=== PATIENT | male | born 1960 | race Caucasian/White ===

== ENCOUNTER 2020-02-05 12:48 | Inpatient (IN) | payer OTHER, SELFPAY ==
[~2020-02-05] VITALS: Ht 177.8 cm; Wt 98.0 kg
[2020-02-05 13:25] VITALS: BP_SYST 122
--- NOTE | 2020-02-05 13:30 | NUR ---
ER Dr. ENGLAND at bedside examining patient.
--- NOTE | 2020-02-05 13:30 | NUR ---
Placed in room 8. Placed on equipment monitor phototypesetting, blood pressure machine and pulse oximeter. To gown for exam. Side rails up. Report given to OTTO Barth.
--- NOTE | 2020-02-05 13:35 | NUR ---
Patient presented to ER C/O SOB. Patient ambulatory to ER, skin pink & warm, respirations labored equal bilat, denies N/V/D. Patient states he has Covid.
[2020-02-05] MEDS ORDERED: DEXAMETHASONE SOD PHOSPHATE 10 MG/ML VIAL IVP ONE (14:00)
[2020-02-05] MEDS ORDERED: DEXAMETHASONE SOD PHOSPHATE 10 MG/ML VIAL ONE (14:13)
[2020-02-05 14:17] LABS: BASOPHILS % (AUTO) 0.3 % (0.0-2.0); EOSINOPHILS % (AUTO) 0.1 % (0.0-4.0); HEMOGLOBIN 14.8 g/dL (14.0-18.0); LYMPHOCYTES # (AUTO) 0.5 K/uL (1.0-5.5); LYMPHOCYTES % (AUTO) 4.6 % (20.5-51.5); MEAN CORPUSCULAR HEMOGLOBIN 31 pg (27-31); MEAN CORPUSCULAR HGB CONC 34 % (32-36); MEAN CORPUSCULAR VOLUME 91 fL (79.0-98.0); MONOCYTES # (AUTO) 0.2 K/uL (0.0-1.0); MONOCYTES % (AUTO) 1.7 % (1.7-9.3); NEUTROPHILS # (AUTO) 9.5 K/uL (1.8-7.7); NEUTROPHILS % (AUTO) 93.3 % (40.0-70.0); PLATELET COUNT (AUTO) 167 K/uL (130-430); RED BLOOD CELL COUNT(AUTO) 4.73 MIL/uL (4.2-6.2); RED CELL DISTRIBUTION WIDTH 12.9 % (9.0-15.0); WHITE BLOOD COUNT (AUTO) 10.2 K/uL (4.8-10.8)
[2020-02-05 14:34] LABS: PROTHROMBIN TIME 10.5 SECS (9.5-12.5)
[2020-02-05 14:35] LABS: CALCIUM 8.5 mg/dL (8.4-11.0); CREATININE 1.04 mg/dL (0.55-1.30); POTASSIUM 3.8 mmol/L (3.5-5.1)
[2020-02-05 14:40] LABS: TOTAL BILIRUBIN 0.6 mg/dL (0.0-1.0)
[2020-02-05 14:53] LABS: C-REACTIVE PROTEIN QUANT 58.9 mg/dL (0-0.5)
[2020-02-05] MEDS ORDERED: cefTRIAXone 1 GM IVPB PREMIX 50 ML IV ONE (15:15)
--- NOTE | 2020-02-05 15:24 | NUR ---
Patient will be admitted to care of Dr. Pena. Admitted to telemetry unit. Waiting for room assignment. SBAR report to be given at bedside with opportunity for questions.
[2020-02-05] MEDS ORDERED: IPRATROPIUM BROM 0.5 MG/2.5 ML VIAL.NEB (ATROVENT) INH PRN (15:30)
[2020-02-05 15:47] LABS: CLARITY/URINE SLIGHTLY HAZY (CLEAR); COLOR,URINE YELLOW (YELLOW); PROTEIN URINE 2+ (NEGATIVE)
[2020-02-05 15:48] LABS: BILIRUBIN,URINE NEGATIVE (NEGATIVE); BLOOD, URINE TRACE (NEGATIVE); GLUCOSE,URINE 3+ (NEGATIVE); KETONES,URINE 3+ (NEGATIVE); LEUKOCYTE ESTERASE ,URINE NEGATIVE (NEGATIVE); NITRITE, URINE NEGATIVE (NEGATIVE); UROBILINOGEN,URINE 0.2 (0.2-1.0)
[2020-02-05 15:49] LABS: BACTERIA,URINE FEW /HPF (None Seen); MUCUS,URINE 1+ /LPF (None Seen); RBC,URINE 0-3 /HPF (0-3)
--- NOTE | 2020-02-05 16:21 | NUR ---
Patient will be admitted to care of DR KIM. Admitted to TELE unit. Will go to room 120B. Belongings list completed. Complete and up to date summary report printed. SBAR report to be given at bedside with opportunity for questions.
[2020-02-05 16:30] VITALS: BP_SYST 128
[2020-02-05] MEDS ORDERED: ALBUTEROL MDI INHALATION 8 GM INH INH PRN (16:30)
--- NOTE | 2020-02-05 16:31 | NUR ---
ADMISSION NOTES, RECEIVED PT FROM ER. FOR COVID 19, UNDER THE CARE OF DR KIM AND DR VIEIRA. PT SITUATED IN THE BED, PT'S VITALS TAKEN. EDUCATED PT ON THE USE OF CALL LIGHT , TV AND BED CONTROLS. ENCOURAGED PT TO CALL NURSES FOR ASSISTANCE AND ANY CONCERNS FOR SAFETY. BED ALARM ON.
[2020-02-05 16:35] VITALS: BP_SYST 138
--- NOTE | 2020-02-05 16:40 | NUR ---
OPENING NOTES, RECEIVED PT IN BED, PT IS AAOX4, C/O OF CHEST PAIN WITH COUGHING, TOLERABLE PAIN AT THIS TIME. PT SOB WHEN TALKING. PT ON OXYMIZER 4 LIT. O2 SAT WAS 86%. O2 WAS INCREASED TO 8LI, O2 SAT INCREASED TO 90-92%. WILL CONT TO MONITOR.
[2020-02-05] MEDS: AZITHROMYCIN 500 MG in NS 250 ML IV SCH (17:46)
[2020-02-05] MEDS ORDERED: METF500S7 PO (18:26)
[2020-02-05] MEDS ORDERED: GLIP10TA21 PO (18:26)
[2020-02-05] MEDS ORDERED: LOSA50TA3 PO (18:26)
[2020-02-05] MEDS: IPRATROPIUM BROM 0.5 MG/2.5 ML VIAL.NEB (ATROVENT) INH SCH (19:00)
--- NOTE | 2020-02-05 19:33 | NUR ---
Closiing notes, pt in stable condition, continued to be on oxymizer 8 li. schedule abx given . o2 sat is 94% endorsed to night nurse.
--- NOTE | 2020-02-05 19:45 | NUR ---
OPENING NOTES Received report from OTTO Ruiz. Patient resting in bed, AAOx4 breathing evenly on 8L of oxygen via NC. Patient has and IV on the right hand 20g, Remdesivir running, patient tolerating it well. Educated patient on plan of care, fall/safety/isolation precautions, call light system, patient stated understanding with return demonstration. Bed is locked, armed, and at lowest position, will continue to monitor.
[2020-02-05] MEDS: ALBUTEROL MDI INHALATION 8 GM INH INH SCH (20:00)
[2020-02-05 20:20] VITALS: BP_SYST 115
[2020-02-05] MEDS: ENOXAPARIN SODIUM 100 MG/ML SYRINGE SQ SCH (20:20)
--- NOTE | 2020-02-05 20:20 | NUR ---
MEDICATION/ROUNDS Patient resting in bed, RT at bedside, patient now on high flow O2, 45L at 80%. Patient's O2 sat was low 80's, now currently at 95. Patient was complaining because of the air vent noise, patient moved from 120B to 120A, earplugs provided. Educated patient on due medication, patient stated understanding. Administered medication, patient tolerated it well. Patient denies any pain at this time. No other needs at this time. Fall/safety/isolation precautions, will continue to monitor. Addendum: 02/06/20 at 0506 by Manav Ramirez RN Patient was complaining of having a hard time eating due to sore throat and requested for a soft diet. Patient also said he checks his blood sugar at home.
--- NOTE | 2020-02-05 21:09 | NUR ---
PAGED DR. KIM FOR ORDERS DIALED: [phone] SPOKE TO: JAVA SQL DEVELOPER HUNG UP BEFORE GIVING NAME
--- NOTE | 2020-02-05 21:50 | NUR ---
RESOURCE/ADMITTING NURSE SPOKE WITH DR. REAL MD ORDERED FOR ACCUCHECKS ACHS, REGULAR INSULIN SLIDING SCALE, DIET CHANGED TO CCHO SOFT PER PATIENT REQUEST.
--- NOTE | 2020-02-05 22:15 | NUR ---
ROUNDS Patient resting in bed, breathing evenly and nonlabored on high flow O2, 45L at 80%. Patient asked for some jello and milk which was provided. No other needs at this time. Fall/safety/isolation precautions, will continue to monitor.
[2020-02-06] VITALS (18 sets, daily range): BP systolic 86–135
--- NOTE | 2020-02-06 00:20 | NUR ---
ROUNDS Patient resting in bed, awake, breathing evenly and nonlabored on high flow O2, 45L at 80%. Vital signs within normal limits. Fall/safety/isolation precautions, will continue to monitor.
[2020-02-06] MEDS: IPRATROPIUM BROM 0.5 MG/2.5 ML VIAL.NEB (ATROVENT) INH SCH ×4 (01:00→19:00)
[2020-02-06] MEDS: ALBUTEROL MDI INHALATION 8 GM INH INH SCH ×4 (01:30→20:08)
--- NOTE | 2020-02-06 02:18 | NUR ---
ROUNDS Patient resting in bed, eyes closed, breathing evenly and nonlabored on high flow O2, 45L at 80%. No s/s of distress at this time, no other needs at this time. Fall/safety/isolation precautions, will continue to monitor.
--- NOTE | 2020-02-06 04:04 | NUR ---
ROUNDS Patient resting in bed, awake, breathing evenly and nonlabored on high flow O2, 45L at 80%. Vital signs within normal limits. No s/s of distress at this time, no other needs at this time. Fall/safety/isolation precautions, will continue to monitor.
--- NOTE | 2020-02-06 06:27 | NUR ---
NOTIFIED CLUB DIRECTOR REGARDING ORDER TO TRANSFER TO ICU Notified resource nurse and ferry terminal supervisor regarding order to transfer to ICU. Patient resting in bed, AAOx4, breathing evenly on high flow, 45L O2, 80%, O2 sat 90%. BS checked: 316, coverage needed. Educated patient about insulin, patient stated understanding, 8 units of regular insulin given, patient tolerated it well. Patient states he "feels better this morning" and he is using the incentive spirometer that RT gave him, saying that "it helps me." Notified patient about ICU transfer. No other needs at this time, fall/safety/isolation precautions, will continue to monitor.
--- NOTE | 2020-02-06 06:29 | NUR ---
PAGED PAGED PARIS MCINTOSH AT [phone] SPOKE WITH JORDANA.
[2020-02-06] MEDS: INSULIN REGULAR, HUMAN 100 UNITS/ML, 10 ML VIAL (humuLIN R) SUBCUT PRN ×4 (06:35→21:12)
--- NOTE | 2020-02-06 07:20 | NUR ---
CLOSING NOTE ENDORSED SBAR REPORT TO COMING RN FOR CONTINUITY OF CARE. Addendum: 02/07/20 at 2243 by Meghan Johnson RN WRONG TIME
--- NOTE | 2020-02-06 07:27 | NUR ---
ROUNDS Spoke with patient's family earlier, wants to add daughters to persons to notify: Marta , Evelyn . Updated family with situation, family stated understanding, family requesting updates especially regarding changes in condition. Patient called and asked to be placed on a bedpan. Patient denies SOB or difficulty breathing at this time. Fall/safety/isolation precautions, will continue to monitor.
[2020-02-06] MEDS: DEXAMETHASONE SOD PHOSPHATE 10 MG/ML VIAL IVP SCH (08:14)
[2020-02-06] MEDS: ENOXAPARIN SODIUM 100 MG/ML SYRINGE SQ SCH ×2 (08:15→20:41)
--- NOTE | 2020-02-06 08:55 | NUR ---
TRANSFER TO ICU ROOM 127 Transferred patient to room 127, RT at bedside. Patient resting in bed, breathing evenly and nonlabored on high flow O2, 45L, 80%. Gave patient scheduled morning medications at 0815, patient tolerated them well. Vital signs within normal limits. Patient denies any SOB or difficulty breathing at this time. Needs met throughout the shift. No s/s of distress at this time, no other needs at this time. Fall/safety/isolation precautions. ICU nurse Hattie currently at bedside, will endorse care via SBAR.
--- NOTE | 2020-02-06 08:57 | NUR ---
Nutrition Update Adrian scale 17 noted. Pt admitted for COVID-19, PNA, Respiratory Failure Diet: CCHO, Soft Diet BMI: 30.8 kg/m2 RD to follow per nutrition care standards.
--- NOTE | 2020-02-06 09:10 | NUR ---
Transfer to ICU Received report from endorsing RN. Pt AAOx4, able to verbalize needs. Pt transfer to ICU for desaturating and high fiO2. Pt states no pain or distress at this time and that SOB occurs on exerting energy. Pt able to void and turn self. IV site intact, patent, no infiltration noted. Oriented pt to room and call light. Educated pt on treatment plan, proning, and breathing exercises. No other complaints at this time.
[2020-02-06] MEDS ORDERED: INSULIN GLARGINE 100 UNITS/ML 10 ML VIAL SUBCUT ONE (10:00)
--- NOTE | 2020-02-06 10:00 | NUR ---
Pt states he wants to prone. Assisted in proning, saturating greater than 90%. Tolerating well.
--- NOTE | 2020-02-06 10:26 | NUR ---
CONSULTATION PAGED/CALLED Reason for Consultation: [] PULMONARY DISTRESS; COVID 19 Person Who was Notified: [] MD BAI Consulting Physician: [] DR VIEIRA Liaison Officer Specialty: [] PULMO Ordering Physician: [] DR KIM
[2020-02-06] MEDS: cefTRIAXone 1 GM in D5W 50 ML IV SCH (15:49)
--- NOTE | 2020-02-06 16:27 | NUR ---
Pt using incentive spirometer. Also assisted pt with proning. Saturating at 90% and higher. Tolerating well.
[2020-02-06] MEDS: REMDESIVIR 100 MG in NS 250 ML IV SCH (17:32)
[2020-02-06] MEDS: AZITHROMYCIN 500 MG in NS 250 ML IV SCH (18:36)
--- NOTE | 2020-02-06 19:15 | NUR ---
Closing Pt up in bed eating dinner. Self prones and turns, tolerating well saturating 95%. No other complaints at this time. Endorsed plan of care to RN.
--- NOTE | 2020-02-06 19:20 | NUR ---
OPENING NOTE RECEIVED SBAR REPORT FROM OFF COMING RN FOR CONTINUITY OF CARE.
--- NOTE | 2020-02-06 20:15 | NUR ---
PT LAYING IN BED, A/O X 4. PT FOLLOWS COMMANDS. PT DENIES ANY PAIN OR DISCOMFORT. PT ON 45 L HIGH FLOW NC WITH 80% FIO2. PT USING INCENTIVE SPIROMETER, EDUCATED PT ON THE IMPORTANCE OF USING IT. ASSISTED PT TO PRONE POSITION, PT TOLERATED WELL. EDUCATED PT ON IMPORTANCE OF PRONING. CALL LIGHT WITHIN REACH. BED LOCKED AND IN THE LOWEST POSITION, SAFETY PRECAUTIONS IN PLACE. WILL CONTINUE TO MONITOR AND ASSESS.
[2020-02-07] VITALS (22 sets, daily range): BP systolic 104–142
[2020-02-07 06:48] LABS: ALBUMIN 2.5 g/dL (3.4-4.8); CALCIUM 8.6 mg/dL (8.4-11.0); CREATININE 0.92 mg/dL (0.55-1.30); TOTAL BILIRUBIN 0.5 mg/dL (0.0-1.0)
[2020-02-07] MEDS: INSULIN REGULAR, HUMAN 100 UNITS/ML, 10 ML VIAL (humuLIN R) SUBCUT PRN ×4 (06:56→22:16)
--- NOTE | 2020-02-07 07:20 | NUR ---
CLOSING NOTE ENDORSED SBAR REPORT TO COMING RN FOR CONTINUITY OF CARE.
--- NOTE | 2020-02-07 07:23 | NUR ---
OPENING NOTE Patient report received via SBAR from endorsing RN
[2020-02-07] MEDS: DEXAMETHASONE SOD PHOSPHATE 10 MG/ML VIAL IVP SCH (08:01)
[2020-02-07] MEDS: ENOXAPARIN SODIUM 100 MG/ML SYRINGE SQ SCH ×2 (08:01→21:30)
[2020-02-07] MEDS: glipiZIDE XL 5 MG TAB ( GLUCOTROL XL) PO SCH (08:01)
--- NOTE | 2020-02-07 10:30 | NUR ---
Nursing Note Patient had BM, patient cleaned, CHG bath given, patient tolerated well
--- NOTE | 2020-02-07 11:25 | NUR ---
Nursing Note Patient assisted to prone position, patient oxygen saturation at 94%, currently tolerating well
--- NOTE | 2020-02-07 12:30 | NUR ---
MD ROUND Dr. Leyva in to see patient, physician entered orders
--- NOTE | 2020-02-07 12:47 | NUR ---
CONSULT ID CONSULTING MD: DR. FAYE SPOKE TO: ERIKA DIALED: [phone] ORDERED BY: DR. HOGAN
[2020-02-07] MEDS: ALBUTEROL MDI INHALATION 8 GM INH INH SCH (14:00)
--- NOTE | 2020-02-07 14:00 | NUR ---
Nursing Note Patient assisted to left side
--- NOTE | 2020-02-07 15:00 | NUR ---
ROUND Dr. Gerber in to see patient, new orders entered
[2020-02-07] MEDS: cefTRIAXone 1 GM in D5W 50 ML IV SCH (15:10)
[2020-02-07] MEDS: REMDESIVIR 100 MG in NS 250 ML IV SCH (16:59)
[2020-02-07] MEDS: AZITHROMYCIN 500 MG in NS 250 ML IV SCH (18:09)
--- NOTE | 2020-02-07 19:23 | NUR ---
Closing Note Patient report given to nightshift RN via SBAR
--- NOTE | 2020-02-07 19:25 | NUR ---
OPENING NOTE Received SBAR report from off coming RN for continuity of care. Pt laying in bed to his right side. Pt on 45L with 80% FiO2, oxygen saturations high 80s-low 90s. Bed locked and in lowest position, safety precautions in place. Will continue to monitor and assess.
--- NOTE | 2020-02-07 20:55 | NUR ---
MD BEC[facility] [employer] DR. NOBLE LEAF SORTER [phone] SPOKE WITH THU
--- NOTE | 2020-02-07 21:30 | NUR ---
Pt A/O x 4, following commands. Pt denies any pain but c/o anxiety, provided emotional support. Pt remains on 45L O2 via high flow NC with 85% FiO2, oxygen saturations in high 80s-90s. Assisted pt prone position, pt tolerated well. Upon proning, pt's oxygen saturations maintained in 90s. Call light within reach. Bed locked and in lowest position, safety precautions in place. Will continue to monitor and assess.
--- NOTE | 2020-02-07 22:08 | NUR ---
DR. ZAMORA Spoke with Dr. Zamora in regards to pt c/o anxiety. Obtained telephone orders for PRN medication. Will carry out orders.
--- NOTE | 2020-02-07 22:10 | NUR ---
HIGH ALERT NOTE: Called back at [phone] identified within the medical roster to verify physician authenticity.
[2020-02-08] VITALS (24 sets, daily range): BP systolic 98–141
[2020-02-08] MEDS: LORazepam 2 MG/ML VIAL IVP PRN ×3 (02:07→23:21)
[2020-02-08] MEDS ORDERED: LORazepam 2 MG/ML VIAL ONE ×2 (02:09→10:18)
[2020-02-08] MEDS: IPRATROPIUM BROM 0.5 MG/2.5 ML VIAL.NEB (ATROVENT) INH SCH ×2 (07:00→13:00)
[2020-02-08] MEDS: INSULIN REGULAR, HUMAN 100 UNITS/ML, 10 ML VIAL (humuLIN R) SUBCUT PRN ×4 (07:09→20:41)
--- NOTE | 2020-02-08 07:31 | NUR ---
CLOSING NOTE Endorsed SBAR report to oncoming RN for continuity of care.
--- NOTE | 2020-02-08 07:35 | NUR ---
Opening Note Received bedside report from endorsing RN for continuation of care. Received patient awake and resting in bed, denies any pain or SOB at this time. No signs or symptoms of acute distress noted. Bed locked in lowest position, bed alarm on, and call light within reach. Fall and safety precautions in place.
[2020-02-08] MEDS: ALBUTEROL MDI INHALATION 8 GM INH INH SCH ×3 (07:47→21:57)
[2020-02-08 07:48] LABS: BASOPHILS % (AUTO) 0.3 % (0.0-2.0); HEMATOCRIT 39.3 % (36-54); HEMOGLOBIN 13.4 g/dL (14.0-18.0); LYMPHOCYTES # (AUTO) 0.7 K/uL (1.0-5.5); LYMPHOCYTES % (AUTO) 6.6 % (20.5-51.5); MEAN CORPUSCULAR HEMOGLOBIN 31 pg (27-31); MEAN CORPUSCULAR HGB CONC 34 % (32-36); MEAN CORPUSCULAR VOLUME 92 fL (79.0-98.0); MONOCYTES # (AUTO) 0.4 K/uL (0.0-1.0); MONOCYTES % (AUTO) 3.5 % (1.7-9.3); NEUTROPHILS % (AUTO) 89.6 % (40.0-70.0); PLATELET COUNT (AUTO) 292 K/uL (130-430); RED BLOOD CELL COUNT(AUTO) 4.28 MIL/uL (4.2-6.2); RED CELL DISTRIBUTION WIDTH 12.6 % (9.0-15.0); WHITE BLOOD COUNT (AUTO) 11.2 K/uL (4.8-10.8)
[2020-02-08 08:20] LABS: CALCIUM 8.5 mg/dL (8.4-11.0); CREATININE 0.9 mg/dL (0.55-1.30); POTASSIUM 4.2 mmol/L (3.5-5.1)
[2020-02-08] MEDS: glipiZIDE XL 5 MG TAB ( GLUCOTROL XL) PO SCH (08:39)
[2020-02-08] MEDS: DEXAMETHASONE SOD PHOSPHATE 10 MG/ML VIAL IVP SCH (08:39)
[2020-02-08] MEDS: ENOXAPARIN SODIUM 100 MG/ML SYRINGE SQ SCH ×2 (08:43→20:03)
--- NOTE | 2020-02-08 10:04 | NUR ---
Family Update Spoke with patient's Yakelin on the phone regarding patient status and plan of care. All questions answered and education provided.
--- NOTE | 2020-02-08 11:15 | NUR ---
Dr. Leyva in to see patient. No new orders.
--- NOTE | 2020-02-08 12:05 | NUR ---
Dietitian Recommendations * Recommend CCHO, mechanical soft, finely chopped diet w/ Glucerna BID, Cash BID (supplements provide an additional 620 kcal/day, 25 gm protein/day) MERCY, GET Please refer to Nutrition Assessment for details. Addendum: 02/08/20 at [address] Amended: Links added.
[2020-02-08] MEDS ORDERED: ASCORBIC ACID 500 MG TABLET PO ONE (14:30)
[2020-02-08] MEDS ORDERED: CHOLECALCIFEROL (VITAMIN D3) 2,000 UNIT TABLET PO ONE (14:30)
--- NOTE | 2020-02-08 14:53 | NUR ---
Dr. Parra at bedside examining patient. New orders received.
[2020-02-08] MEDS: cefTRIAXone 1 GM in D5W 50 ML IV SCH (15:07)
--- NOTE | 2020-02-08 15:09 | NUR ---
Family Update Spoke with patient's Yakelin on the phone regarding patient status and plan of care. All questions answered and education provided.
--- NOTE | 2020-02-08 16:16 | NUR ---
Dr. Gerber in to see patient. No new orders.
[2020-02-08] MEDS: AZITHROMYCIN 500 MG in NS 250 ML IV SCH (17:10)
[2020-02-08] MEDS: REMDESIVIR 100 MG in NS 250 ML IV SCH (18:01)
--- NOTE | 2020-02-08 19:17 | NUR ---
Closing Note Endorsed bedside report to oncoming RN using SBAR approach for continuation of care.
--- NOTE | 2020-02-08 19:20 | NUR ---
Opening Note Received report from AM nurse using SBAR approach.
[2020-02-08] MEDS: ASCORBIC ACID 500 MG TABLET PO SCH (20:03)
--- NOTE | 2020-02-08 21:50 | NUR ---
BT INITIATION: Consent signed per patient agreeing to administration of convalescent plasma. Blood has been type and crossmatched. Blood sent from blood bank. Information on unit of blood checked against patient wristband at bedside by two nurses. All information matches. Patient or responsible democrat informed of potential complications associated with blood transfusion. Informed of possible transfusion reaction symptoms. Aware of need to notify nurse at once of itching, shortness of breath, flushing, feeling of impending doom, or other symptoms not previously present. Vital signs taken within 5 minutes prior to initiation of transfusion. RN will remain with patient for first 15 minutes of transfusion at which time vital signs will be re-assessed.
[2020-02-09] VITALS (22 sets, daily range): BP systolic 97–154
[2020-02-09] MEDS: ALBUTEROL MDI INHALATION 8 GM INH INH SCH ×6 (02:05→19:45)
[2020-02-09] MEDS: INSULIN REGULAR, HUMAN 100 UNITS/ML, 10 ML VIAL (humuLIN R) SUBCUT PRN ×4 (06:34→20:57)
[2020-02-09] MEDS: IPRATROPIUM BROM 0.5 MG/2.5 ML VIAL.NEB (ATROVENT) INH SCH ×2 (07:00→13:00)
--- NOTE | 2020-02-09 07:15 | NUR ---
Closing Note Endorsed report to AM nurse using SBAR approach.
[2020-02-09 07:19] LABS: ALBUMIN 2.4 g/dL (3.4-4.8); BILIRUBIN,DIRECT 0.1 mg/dL (0.0-0.3); C-REACTIVE PROTEIN QUANT 5.1 mg/dL (0-0.5); TOTAL BILIRUBIN 0.5 mg/dL (0.0-1.0)
--- NOTE | 2020-02-09 08:00 | NUR ---
AM ASSESSMENT. PT LYING TO HIS SIDE, AWAKE, ON HIGH FLOW O2, SATURATION 82% TO 90%, PT ABLE TO EXPRESS BASIC NEEDS, COLD WATER TO DRINK AND BLANKET PROVIDED, WILL CONTINUE TO MONITOR.
--- NOTE | 2020-02-09 08:45 | NUR ---
FAMILY. PT'S CALLED, UPDATED HER ON PT'S STATUS. DR VIEIRA IN THE UNIT AND SPOKE TO HER VIA PHONE.
[2020-02-09] MEDS: ENOXAPARIN SODIUM 100 MG/ML SYRINGE SUBCUT SCH ×2 (09:00→20:09)
[2020-02-09] MEDS: DEXAMETHASONE SOD PHOSPHATE 10 MG/ML VIAL IVP SCH (09:31)
[2020-02-09] MEDS: CHOLECALCIFEROL (VITAMIN D3) 2,000 UNIT TABLET PO SCH (09:32)
[2020-02-09] MEDS: ASCORBIC ACID 500 MG TABLET PO SCH ×2 (09:32→20:09)
[2020-02-09] MEDS: glipiZIDE XL 5 MG TAB ( GLUCOTROL XL) PO SCH (09:33)
--- NOTE | 2020-02-09 10:00 | NUR ---
IV IV IN RIGHT HAND OCCLUDED AND DISCONTINUED. USED 22 GAUGE CATHETER IN RIGHT HAND, WITH GOOD BLOOD RETURN NOTED.
--- NOTE | 2020-02-09 10:30 | NUR ---
Mina. PT ASKED HELP IN GETTING TO THE BATHROOM, PT TACHYPNEIC, AND ANXIOUS. OFFERED A BEDPAN, AND WAS WILLING TO USE IT. ALLOWED HIM ADEQUATE TIME, WIPES PROVIDE FOR PERSONAL HYGIENE. PT STATED " I WOULD HAVE HAD MY BREAKFAST BUT I WAS SCARED", PT WATCHING HIS O2 SATURATION ON THE MONITOR, ENCOURAGED HIM TO PUSH THE O2 PRONGS MORE INTO HIS NOSTRILS WHEN HE FEELS OUT OF BREATH, STAYED WITH PATIENT FOR ABOUT 10 TO 15 MINUTES TO REDUCE HIS ANXIETY. PT FORGETS THE INSTRUCTION AND GETS NERVOUS WHEN DYSPNEA ATTACKS HIM. PUSHED THE O2 PRONGS INTO HIS NOSTRILS FOR BETTER OXYGENATION.
--- NOTE | 2020-02-09 11:00 | NUR ---
LOW GRADE TEMP. FOREHEAD WARM TO TOUCH, TEMP 100, ENCOURAGED PT TO INCREASE HIS FLUID INTAKE, BROUGHT PT ICED WATER AND CRANBERRY JUICE. COLD TOWEL PLACED TO THE TOP OF HIS HEAD TO REDUCE BODY TEMP.
[2020-02-09] MEDS: cefTRIAXone 1 GM in D5W 50 ML IV SCH (14:51)
[2020-02-09] MEDS ORDERED: ACETAMINOPHEN 325 MG TABLET PO PRN (17:00)
[2020-02-09] MEDS: AZITHROMYCIN 500 MG in NS 250 ML IV SCH (17:15)
[2020-02-09] MEDS: BENZOCAINE/MENTHOL 1 EACH LOZENGE MM PRN (17:17)
[2020-02-09] MEDS: REMDESIVIR 100 MG in NS 250 ML IV SCH (18:23)
--- NOTE | 2020-02-09 19:25 | NUR ---
Opening Note Received report from AM nurse using SBAR approach.
[2020-02-09] MEDS: LORazepam 2 MG/ML VIAL IVP PRN (21:51)
[2020-02-09] MEDS ORDERED: PIPERACILLIN/TAZOBACTAM 4.5 GM/VIAL (ZOSYN) IV ONE (22:09)
[2020-02-09] MEDS: PIPERACILLIN/TAZO 4.5GM/DEX-IS 100 ML IV SCH (22:24)
[2020-02-10] VITALS (24 sets, daily range): BP systolic 96–132
[2020-02-10] MEDS: ALBUTEROL MDI INHALATION 8 GM INH INH SCH ×4 (01:34→19:46)
[2020-02-10] MEDS: PIPERACILLIN/TAZO 4.5GM/DEX-IS 100 ML IV SCH ×3 (05:57→21:03)
[2020-02-10] MEDS: BENZOCAINE/MENTHOL 1 EACH LOZENGE MM PRN (06:48)
[2020-02-10] MEDS: IPRATROPIUM BROM 0.5 MG/2.5 ML VIAL.NEB (ATROVENT) INH SCH (07:00)
[2020-02-10] MEDS: ASCORBIC ACID 500 MG TABLET PO SCH ×2 (08:59→20:57)
[2020-02-10] MEDS: glipiZIDE XL 5 MG TAB ( GLUCOTROL XL) PO SCH (08:59)
[2020-02-10] MEDS: DEXAMETHASONE SOD PHOSPHATE 10 MG/ML VIAL IVP SCH (08:59)
[2020-02-10] MEDS: ENOXAPARIN SODIUM 100 MG/ML SYRINGE SUBCUT SCH ×2 (09:00→21:03)
[2020-02-10] MEDS: CHOLECALCIFEROL (VITAMIN D3) 2,000 UNIT TABLET PO SCH (09:37)
[2020-02-10] MEDS: INSULIN REGULAR, HUMAN 100 UNITS/ML, 10 ML VIAL (humuLIN R) SUBCUT PRN ×3 (11:13→21:39)
--- NOTE | 2020-02-10 13:00 | NUR ---
BM Patient had a small BM. Cleaned patient with maria wipes. Patient tolerated well.
--- NOTE | 2020-02-10 16:00 | NUR ---
i have assumed the care of the pt.for the remainder of the shift.i have received the pt's report/data from neisha.pt.presents isolation status;droplet.covid19+.pt.presents o2 therapy administered via high flow method;administion@30 l/min/fio-2%=85%pt.utilizing the urinal;w/in access of the pt.call light/telphone w/in access of the pt
--- NOTE | 2020-02-10 16:15 | NUR ---
Closing Note Endorsed report to Amaury MENJIVAR using SBAR approach.
--- NOTE | 2020-02-10 17:00 | NUR ---
pt.assessed.v/s assessed values w/in normal limits.o2-sat%=88%.i have re-iterated to the pt.that he is to assume the prone position. i have assessed the blood glucose;value;192mg/dl.no c/o pain,nausea.i have attended to the urinal/measured/cleaned placed w/in access of the pt.pt.capable to re-position self.call light/telephone placed w/in access of the pt.
--- NOTE | 2020-02-10 18:00 | NUR ---
pt.assessed.v/s assessed values w/in normal limits.pt.inquired r/e;temp:temp status stable w/in normal limits.i have administered insulin;regular;2-units.i have provided the pt's dinner.no c/o pain,nausea.general status stable.respiratory status stable;slight labored:02-sat%=86%.call light/telephone placed w/in access of the pt.
--- NOTE | 2020-02-10 20:00 | NUR ---
pt.assessed.v/s assessed values w/in normal limits.temp status w/in normal limits.i apprised the pt.of the temp status;value. no c/o pain,nausea. i have attended to the urinal.measured/cleaned placed w/in access of the pt.pt.re-positioned self.general status stable.respiratory status stable;slight labored;02-sat%=87%.call light/telephone palced w/in access of the pt.
--- NOTE | 2020-02-10 20:30 | NUR ---
i have assessed the blood glucose;value;234mg/dl.i have apprised the pt.of the blood glucose value.no c/o pain.nausea. 02-sat%=87%.
--- NOTE | 2020-02-10 21:00 | NUR ---
2100p medications administered.i have administered insulin;regular;4-units.pt.capable to ingest the po medications w/out difficulty. no c/o pain,nausea.
--- NOTE | 2020-02-10 22:00 | NUR ---
pt.assessed.v/s assessed values w/in normal limits.pt.has assumed the prone position.02-sat%=90%.per flacc pain mgx pt.absent facial grimaces/body posturing.pt.presents quiescent affect;calm,somnolent.general status stable;respiratory status slight labored call light/telephone placed w/in access of the pt.
[2020-02-11] VITALS (26 sets, daily range): BP systolic 102–127
--- NOTE | 2020-02-11 | NUR ---
pt.assessed.v/s assessed values w/in normal limits.o2-sat%=86%.i have reiterate to the pt.to re-position self.no c/o pain, nausea i have provided water.i have attended to the urinal:measured/cleaned placed w/in access of the pt.general status stable. respiratory status;slight labored.call light/telephone w/in access of the pt.
[2020-02-11] MEDS: LORazepam 2 MG/ML VIAL IVP PRN (00:03)
[2020-02-11] MEDS: IPRATROPIUM BROM 0.5 MG/2.5 ML VIAL.NEB (ATROVENT) INH SCH ×3 (01:00→13:00)
--- NOTE | 2020-02-11 02:00 | NUR ---
pt.assessed.v/s assessed values w/in normal limits.o2-sat%=93%.pt.has re-positioned self.per flacc pain mgx pt.absent facial grimaces/body posturing.iv access intact;patent.urinal w/in access of the pt.general status stable.respiratory status stable; slight labored.call/light telephone w/in access of the pt.
[2020-02-11] MEDS: ALBUTEROL MDI INHALATION 8 GM INH INH SCH ×4 (02:21→20:03)
--- NOTE | 2020-02-11 04:00 | NUR ---
pt.assessed.v/s assessed values w/in normal limits.o2-sat%=92%.pt.has re-positioned self.the urinal w/in access of the pt.iv access intact;patent iv lock.no c/o pain,nausea.no requests posited@this hour.general status stable.respiratory status stable. slight labored.call light/telephone w/in access of the pt.
[2020-02-11] MEDS: PIPERACILLIN/TAZO 4.5GM/DEX-IS 100 ML IV SCH ×3 (05:11→20:52)
[2020-02-11] MEDS: INSULIN REGULAR, HUMAN 100 UNITS/ML, 10 ML VIAL (humuLIN R) SUBCUT PRN ×3 (06:24→20:57)
--- NOTE | 2020-02-11 06:42 | NUR ---
pt.assessed.v/s assessed values w/in normal limits.02-sat%=88%i have administered zosyn;abx;ivpb 0600a dose.pt.capable to reposition self.i have assessed the blood glucose;value;235mg/dl.i have administered insulin;regular;4-units.no c/o pain,nausea. no requests posited@this hour.call light/telephone placed w/in access of the pt.
--- NOTE | 2020-02-11 07:35 | NUR ---
Opening Note Received bedside report from endorsing RN for continuation of care. Received patient awake and resting in bed, patient denies any pain or SOB at this time. No signs or symptoms of acute distress noted. Bed locked in lowest position, bed alarm on, and call light within reach. Fall and safety precautions in place.
--- NOTE | 2020-02-11 08:06 | NUR ---
Dr. Zamora at bedside examining patient. New orders received.
--- NOTE | 2020-02-11 08:50 | NUR ---
Family Update Spoke with patient's Yakelin on the phone regarding patient status and plan of care. All questions answered and education provided.
[2020-02-11] MEDS: DEXAMETHASONE SOD PHOSPHATE 10 MG/ML VIAL IVP SCH (09:12)
[2020-02-11] MEDS: ASCORBIC ACID 500 MG TABLET PO SCH ×2 (09:12→20:51)
[2020-02-11] MEDS: CHOLECALCIFEROL (VITAMIN D3) 2,000 UNIT TABLET PO SCH (09:12)
[2020-02-11] MEDS: ENOXAPARIN SODIUM 100 MG/ML SYRINGE SUBCUT SCH ×2 (09:13→20:59)
[2020-02-11] MEDS: glipiZIDE XL 5 MG TAB ( GLUCOTROL XL) PO SCH (09:57)
[2020-02-11] MEDS ORDERED: INSULIN GLARGINE 100 UNITS/ML 10 ML VIAL SUBCUT ONE (10:15)
--- NOTE | 2020-02-11 12:10 | NUR ---
Family Update Spoke with patient's Yakelin on the phone regarding patient status and plan of care. All questions answered and education provided.
--- NOTE | 2020-02-11 12:15 | NUR ---
Dr. Parra in to see patient. New orders received.
[2020-02-11 12:32] LABS: BASOPHILS % (AUTO) 0.3 % (0.0-2.0); EOSINOPHILS % (AUTO) 0.2 % (0.0-4.0); HEMATOCRIT 39.8 % (36-54); HEMOGLOBIN 13.8 g/dL (14.0-18.0); LYMPHOCYTES # (AUTO) 0.4 K/uL (1.0-5.5); LYMPHOCYTES % (AUTO) 3.1 % (20.5-51.5); MEAN CORPUSCULAR HEMOGLOBIN 33 pg (27-31); MEAN CORPUSCULAR HGB CONC 35 % (32-36); MEAN CORPUSCULAR VOLUME 95 fL (79.0-98.0); MONOCYTES # (AUTO) 0.1 K/uL (0.0-1.0); MONOCYTES % (AUTO) 0.5 % (1.7-9.3); NEUTROPHILS # (AUTO) 11.1 K/uL (1.8-7.7); NEUTROPHILS % (AUTO) 95.9 % (40.0-70.0); PLATELET COUNT (AUTO) 331 K/uL (130-430); RED BLOOD CELL COUNT(AUTO) 4.21 MIL/uL (4.2-6.2); RED CELL DISTRIBUTION WIDTH 12.5 % (9.0-15.0); WHITE BLOOD COUNT (AUTO) 11.6 K/uL (4.8-10.8)
--- NOTE | 2020-02-11 14:30 | NUR ---
CHG/BM Patient had large soft BM using bedpan. Pericare done, CHG bath given, and bed linens changed. Patient denies any pain or SOB at this time. All needs met.
--- NOTE | 2020-02-11 19:05 | NUR ---
Closing Note Endorsed bedside report to oncoming RN using SBAR approach for continuation of care.
--- NOTE | 2020-02-11 19:15 | NUR ---
change of shift.pt.presents isolation status;droplet;covid19+status.pt.presents o2 therapy via high flow mode;o2 administered @the rate;30 l/m.fio2%=85%.breathing pattern slight labored.pt.affect;anxious.pt.utilizing the urinal w/in access of the pt.call light/telephone w/in access of the pt.
--- NOTE | 2020-02-11 20:00 | NUR ---
pt.assessed.v/s assessed values w/in normal limits.02-sat%=82%.i have re-iterated to the pt.to re-position,assume prone position,breathing excercises.i have attended to the urinal.measured/cleaned placed w/in access of the pt. no c/o pain,nausea.pt.presents iv access intact;patent iv lock.pt.capable to re-position self.call light/telephone placed w/in access of the pt.
--- NOTE | 2020-02-11 20:30 | NUR ---
i have assessed the blood glucose value;254mg/dl.i have apprised the pt.of the blood glucose value. Addendum: 02/12/20 at 0130 by Amaury Garcia RN i have assisted the pt. w/the bedpan.pt.presents bm.@this hour.
[2020-02-11] MEDS: INSULIN GLARGINE 100 UNITS/ML 10 ML VIAL SUBCUT SCH (20:58)
--- NOTE | 2020-02-11 21:00 | NUR ---
2100pmedications administered.i have administered insulin regular:6-units per sliding scale.pt.capable to ingest the po medications w/out difficulty.i have administered zosyn;abx;ivpb 2200p dose.pt.had requested water.i have provided the water.no c/o pain,nausea.call light/telephone placed w/in access of the pt.
--- NOTE | 2020-02-11 22:00 | NUR ---
pt.assessed.v/s assessed values w/in normal limits.o2-sat%=84%.pt.repositioned self.no requests posited@this hour.no c/o pain,nausea. zosyn administration completed.iv access lock.general status stable.respiratory status labored.call light/telephone w/in access of the pt.
[2020-02-12] VITALS (15 sets, daily range): BP systolic 90–141
--- NOTE | 2020-02-12 | NUR ---
pt.assessed.v/s assessed values w/in normal limits.o2-sat%=84%.pt.presents quiescent affect;calm,somnolent. per flacc pain mgx pt.absent facial grimaces/body posturing.pt.capable to reposition self.call light/telephone w/in access of the pt.
[2020-02-12] MEDS: ALBUTEROL MDI INHALATION 8 GM INH INH SCH ×4 (01:00→19:30)
--- NOTE | 2020-02-12 01:00 | NUR ---
pt.requested medication anxiety.i have administered ativan;0.5mg ivp.no additional requests posited @this hour.pt.assisted to the prone position.
[2020-02-12] MEDS: LORazepam 2 MG/ML VIAL IVP PRN (01:13)
--- NOTE | 2020-02-12 02:00 | NUR ---
pt.assessed.v/s assessed values w/in normal limits.02-sat%=86%.pt.presents quiescent affect;calm,somnolent.per flacc pain mgx pt.absent facial grimaces/body posturing.general status stable.respiratory status stable slight labored.urinal w/in access of the pt. call light/telephone w/in access of the pt.
--- NOTE | 2020-02-12 04:00 | NUR ---
pt.assessed.v/s assessed values w/in normal limits.pt.presents quiescent affect;calm,somnolent.o2-sat%=84%.pt.capable to reposition self.per flac pain mgx pt.absent facial grimaces/body posturing.i have attended to the urinal.measured/cleaned.placed w/in access of the pt.general status stable.respiratory status slight labored;02-sat%=88%call light/telephone w/in access of the pt.
[2020-02-12] MEDS: PIPERACILLIN/TAZO 4.5GM/DEX-IS 100 ML IV SCH ×3 (05:01→22:04)
--- NOTE | 2020-02-12 06:12 | NUR ---
pt.assessed.v/s assessed values w/in normal limits.no c/o pain,nausea.02-sat%=83%.i have assessed the blood glucose;value;158mg/dl.i have administered insulin;regular;2-units.per the sliding scale.i have attended to the urinal measured/cleaned placed w/in access of the pt.general status stable.respiratory status stable.call light/telephone palcwed w/in access of the pt.no requests posited @this hour.
[2020-02-12] MEDS: INSULIN REGULAR, HUMAN 100 UNITS/ML, 10 ML VIAL (humuLIN R) SUBCUT PRN ×4 (06:19→22:06)
--- NOTE | 2020-02-12 07:45 | NUR ---
Opening Notes Patient received awake in bed connected to environmental monitoring technician with NSR. Patient on high flow 30L oxygen and FiO2 85%. Patient educated regarding being on prone position to increase oxygen saturation. Patient verbalized understanding. Patient uses urinal to void. Safety precautions enforced.
[2020-02-12] MEDS: CHOLECALCIFEROL (VITAMIN D3) 2,000 UNIT TABLET PO SCH (08:46)
[2020-02-12] MEDS: ASCORBIC ACID 500 MG TABLET PO SCH ×2 (08:46→20:54)
[2020-02-12] MEDS: DEXAMETHASONE SOD PHOSPHATE 10 MG/ML VIAL IVP SCH (08:47)
[2020-02-12] MEDS: ENOXAPARIN SODIUM 100 MG/ML SYRINGE SUBCUT SCH ×2 (08:52→20:57)
[2020-02-12] MEDS: glipiZIDE XL 5 MG TAB ( GLUCOTROL XL) PO SCH (08:54)
--- NOTE | 2020-02-12 09:07 | NUR ---
Dr Zamora updated on pts condition. Questions answered.
--- NOTE | 2020-02-12 10:00 | NUR ---
IV reinsertion Peripheral IV dislodged. Attempted to reinsert multiple times. Received order for midline placement per MD.
--- NOTE | 2020-02-12 12:00 | NUR ---
RN Rounds Patient educated on importance of proning. Patient agreeable and verbalized understanding. Patient assisted to ADLs and assisted with proning. Saefty precautions enforced.
[2020-02-12] MEDS: IPRATROPIUM BROM 0.5 MG/2.5 ML VIAL.NEB (ATROVENT) INH SCH ×2 (13:00→19:00)
--- NOTE | 2020-02-12 16:00 | NUR ---
RN Rounds Patient resting in bed, saturations within 70-80%. Patient educated regarding proning. Patient verbalized understanding. Safety precautions enforced.
--- NOTE | 2020-02-12 19:30 | NUR ---
Closing Notes Endorsed to restaurant shift leader RN using SBAR format.
--- NOTE | 2020-02-12 19:30 | NUR ---
Opening note Received report from Ivania MENJIVAR.
[2020-02-12] MEDS: methylPREDNISolone SOD SUCC 40 MG/ML VIAL IVP SCH (20:55)
[2020-02-12] MEDS ORDERED: *LOVENOX 1MG/KG Q12H/PHARMACY XX ONE ×2 (21:15)
[2020-02-12 21:25] LABS: BASOPHILS % (AUTO) 0.4 % (0.0-2.0); HEMATOCRIT 41.2 % (36-54); HEMOGLOBIN 13.8 g/dL (14.0-18.0); LYMPHOCYTES # (AUTO) 0.2 K/uL (1.0-5.5); LYMPHOCYTES % (AUTO) 1.9 % (20.5-51.5); MEAN CORPUSCULAR HEMOGLOBIN 31 pg (27-31); MEAN CORPUSCULAR HGB CONC 34 % (32-36); MEAN CORPUSCULAR VOLUME 93 fL (79.0-98.0); MONOCYTES % (AUTO) 0.3 % (1.7-9.3); NEUTROPHILS # (AUTO) 11.1 K/uL (1.8-7.7); NEUTROPHILS % (AUTO) 97.4 % (40.0-70.0); PLATELET COUNT (AUTO) 324 K/uL (130-430); RED BLOOD CELL COUNT(AUTO) 4.44 MIL/uL (4.2-6.2); RED CELL DISTRIBUTION WIDTH 12.8 % (9.0-15.0); WHITE BLOOD COUNT (AUTO) 11.4 K/uL (4.8-10.8)
[2020-02-12] MEDS ORDERED: ENOXAPARIN SODIUM 100 MG/ML SYRINGE SUBCUT SCH (21:30)
[2020-02-12] MEDS ORDERED: ENOXAPARIN SODIUM 60 MG/0.6 ML SYRINGE SUBCUT ONE (21:30)
[2020-02-12 21:39] LABS: CALCIUM 8.1 mg/dL (8.4-11.0); CREATININE 0.86 mg/dL (0.55-1.30); POTASSIUM 4.4 mmol/L (3.5-5.1)
[2020-02-12 21:49] LABS: TOTAL BILIRUBIN 0.6 mg/dL (0.0-1.0)
[2020-02-12 21:50] LABS: ALBUMIN 1.9 g/dL (3.4-4.8)
--- NOTE | 2020-02-12 22:00 | NUR ---
RN Rounds pt resting in bed, NAD, educated on IS. pt verbalized understanding.
[2020-02-12] MEDS: INSULIN GLARGINE 100 UNITS/ML 10 ML VIAL SUBCUT SCH (22:08)
[2020-02-13] VITALS (24 sets, daily range): BP systolic 92–137
--- NOTE | 2020-02-13 00:30 | NUR ---
RN Rounds Pt moved from room 127 to ICU 8 with 3 RNs, RT. Pt requesting Ativan for anxiety and given ear plugs for noise. Call light in reach.
[2020-02-13] MEDS: IPRATROPIUM BROM 0.5 MG/2.5 ML VIAL.NEB (ATROVENT) INH SCH (01:00)
[2020-02-13] MEDS: LORazepam 2 MG/ML VIAL IVP PRN (01:19)
[2020-02-13] MEDS: ALBUTEROL MDI INHALATION 8 GM INH INH SCH ×4 (01:30→19:00)
[2020-02-13] MEDS: PIPERACILLIN/TAZO 4.5GM/DEX-IS 100 ML IV SCH ×3 (06:06→21:25)
[2020-02-13] MEDS: INSULIN REGULAR, HUMAN 100 UNITS/ML, 10 ML VIAL (humuLIN R) SUBCUT PRN ×4 (06:56→21:47)
--- NOTE | 2020-02-13 07:21 | NUR ---
Closing note Report given to Hattie MENJIVAR.
--- NOTE | 2020-02-13 07:30 | NUR ---
Opening Received report from endorsing RN. Pt AAOx4, on high flow 85%, 30L, SOB on exertion. Pt states no pain at this time. Midline in place, dressing intact. Pt voids via urinal. Pt states he gets short of breath during eating so help is needed for meal trays. No other complaints at this time.
[2020-02-13] MEDS: CHOLECALCIFEROL (VITAMIN D3) 2,000 UNIT TABLET PO SCH (08:30)
[2020-02-13] MEDS: ASCORBIC ACID 500 MG TABLET PO SCH ×2 (08:31→21:11)
[2020-02-13] MEDS: ENOXAPARIN SODIUM 100 MG/ML SYRINGE SUBCUT SCH ×2 (08:32→21:14)
[2020-02-13] MEDS: glipiZIDE XL 5 MG TAB ( GLUCOTROL XL) PO SCH (08:32)
[2020-02-13 09:09] LABS: BASOPHILS % (AUTO) 0.2 % (0.0-2.0); HEMATOCRIT 42.4 % (36-54); HEMOGLOBIN 14.1 g/dL (14.0-18.0); LYMPHOCYTES # (AUTO) 0.1 K/uL (1.0-5.5); LYMPHOCYTES % (AUTO) 1.3 % (20.5-51.5); MEAN CORPUSCULAR HEMOGLOBIN 31 pg (27-31); MEAN CORPUSCULAR HGB CONC 33 % (32-36); MEAN CORPUSCULAR VOLUME 94 fL (79.0-98.0); MONOCYTES # (AUTO) 0.1 K/uL (0.0-1.0); MONOCYTES % (AUTO) 0.5 % (1.7-9.3); PLATELET COUNT (AUTO) 321 K/uL (130-430); RED CELL DISTRIBUTION WIDTH 12.7 % (9.0-15.0); WHITE BLOOD COUNT (AUTO) 11.2 K/uL (4.8-10.8)
[2020-02-13 09:28] LABS: CALCIUM 8.1 mg/dL (8.4-11.0); CREATININE 0.86 mg/dL (0.55-1.30); POTASSIUM 4.7 mmol/L (3.5-5.1)
[2020-02-13 10:04] LABS: C-REACTIVE PROTEIN QUANT 10.2 mg/dL (0-0.5)
--- NOTE | 2020-02-13 10:30 | NUR ---
Patient proning, saturating 88-91% with high flow O2 85%. No signs of distress noted.
--- NOTE | 2020-02-13 10:40 | NUR ---
Updates given to , Molly, regarding pt with consent. Instructed Molly to allow for pt to have talking to minimum since being SOB, Molly states understanding.
[2020-02-13] MEDS: methylPREDNISolone SOD SUCC 40 MG/ML VIAL IVP SCH ×2 (11:25→21:13)
[2020-02-13] MEDS ORDERED: TOCILIZUMAB 400 MG in NS 100 ML IV ONE (13:00)
--- NOTE | 2020-02-13 13:30 | NUR ---
Nutrition F/U RD reviewed pt's current EMR record including diet hx, MD notes, RN notes, pertinent labs/meds/procedures, care trends, and care activity Admitting Diagnosis COVID-19, pneumonia, respiratory failure Reviewed Pertinent Medical/Surgical Hx Medical Record Other Medical History Comment: PMH: DM, HTN per physician's notes Pt also found w/ hyponatremia per physician notes SARS-CoV-2 Ag (Rapid) Positive 02/[address] bedside visit deferred d/t isolation precautions and PPE conservation efforts. RD unable to reach pt's primary RN via phone call d/t RN at break per nsg station. Nsg station reported that pt ate this morning but stated no record of breakfast consumption was entered on EMR. Per EMR, pt's PO intake regressed, w/ less than 25% average x last 11 meals, w/ 100% consumption Glucerna noted on 02/10 lunch. Pt is at risk of being malnourished given hx of negligible/poor PO intake within last 5 days. Recommend increase Glucerna frequency to TID to promote PO intake. If pt's appetite continues to be negligible/poor, consider appetite stimulant if/when medically feasible. Will change risk level to high. Current Diet Order/Nutrition Support CCHO, mechanical soft, soft, finely chopped diet w/ Glucerna BID, Cash BID x 5 days Pertinent Medications SShumuLINR, Vit D3, Vit C, Zinc Sulfate, Glipitizide, Solumedrol, lantus, Zosyn Pertinent Labs Na 135 L, BUN 24 H, WBC 11.2 H, BG 167 H (trending down), POC BG 239 H (trending down), ALB 1.9 L Skin Integrity Comment: Adrian scale: 16; no skin breakdown per RN report Current % PO Negligible: less than 25% of 11 meals Estimated Energy Expenditure (kcals/day) 4304-5842 kcal/day (30-35 kcal/kg Adj IBW for acute state, respiratory) Estimated Protein Required (g/day) 105-162 gm/day (1.3-2 gm/kg Adj IBW for acute state, respiratory failure) Estimated Fluid Required (l/day) 2.4-2.8 L/day (1 ml/kcal/day for maintenance) Problem/Etiology/Signs/Symptoms Increased nutritional needs related to metabolic demands as evidenced by estimated nutritional requirements for acute state. *ongoing Expected Outcomes/Goals - Monitor appetite and PO intakes w/ goal of pt meeting at least 50% of estimated nutritional needs, labs trending WNL, normal GI function, and skin integrity/wt maintenance Dietitian Recommendations * Recommend CCHO, mechanical soft, finely chopped diet w/ Glucerna TID, Cash BID (supplements provide an additional 850 kcal/day, 35 gm protein/day) Follow Up High Risk: F/U in 2-3 days Addendum: 02/13/20 at [address] CORRECTION: Problem/Etiology/Signs/Symptoms Increased nutritional needs related to metabolic demands as evidenced by estimated nutritional requirements for acute state. *ongoing Expected Outcomes/Goals - Monitor appetite and PO intakes w/ goal of pt meeting at least 50% of estimated nutritional needs, labs trending WNL, normal GI function, and skin integrity/wt maintenance Dietitian Recommendations * Recommend CCHO, mechanical soft, finely chopped diet w/ Glucerna TID, Cash BID (supplements provide an additional 850 kcal/day, 35 gm protein/day) * If not contraindicated, consider appetite stimulant if negligible/poor PO intake continues to persist. EP,RD
--- NOTE | 2020-02-13 13:54 | NUR ---
Dietitian Recommendations * Recommend CCHO, mechanical soft, finely chopped diet w/ Glucerna TID, Cash BID (supplements provide an additional 850 kcal/day, 35 gm protein/day) *If not contraindicated, consider appetite stimulant if negligible poor PO intake continues to persist. Please see Nutrition F/U for details. EP,RD
--- NOTE | 2020-02-13 16:00 | NUR ---
Dr. Zamora rounding on pt. Informed Dr. Zamora to contact for updates. No other orders made.
--- NOTE | 2020-02-13 16:02 | NUR ---
New orders made for bipap PRN by Dr. Zamora
--- NOTE | 2020-02-13 19:06 | NUR ---
Closing Pt sitting up in bed. Had a few bites of each food item on dinner tray. Still gets SOB, added NRB 15L, O2 saturation in 90s. No other complaints at this time. Will endorse plan of care to RN.
--- NOTE | 2020-02-13 19:20 | NUR ---
Opening note Received report and assumed care. Patient resting in bed; no signs of respiratory distress noted or reported. On high flow canula 30L 85% FIO2. Requires assistance for ADL's and repositioning. will continue to monitor
--- NOTE | 2020-02-13 20:30 | NUR ---
Assessment completed. Requires assistance for perineal care after incontinence of stool. Repositioned for comfort.
[2020-02-13] MEDS: INSULIN GLARGINE 100 UNITS/ML 10 ML VIAL SUBCUT SCH (21:48)
[2020-02-14] VITALS (24 sets, daily range): BP systolic 95–135
--- NOTE | 2020-02-14 00:15 | NUR ---
Self prone with moderate assistance. tolerating well.
[2020-02-14] MEDS: ALBUTEROL MDI INHALATION 8 GM INH INH SCH ×4 (00:35→19:00)
[2020-02-14] MEDS: PIPERACILLIN/TAZO 4.5GM/DEX-IS 100 ML IV SCH ×3 (06:08→21:01)
[2020-02-14 07:07] LABS: BASOPHILS # (AUTO) 0.1 K/uL (0.0-0.2); BASOPHILS % (AUTO) 0.5 % (0.0-2.0); HEMATOCRIT 40.6 % (36-54); HEMOGLOBIN 13.7 g/dL (14.0-18.0); LYMPHOCYTES # (AUTO) 0.1 K/uL (1.0-5.5); LYMPHOCYTES % (AUTO) 1.1 % (20.5-51.5); MEAN CORPUSCULAR HEMOGLOBIN 32 pg (27-31); MEAN CORPUSCULAR HGB CONC 34 % (32-36); MEAN CORPUSCULAR VOLUME 94 fL (79.0-98.0); MONOCYTES % (AUTO) 0.3 % (1.7-9.3); NEUTROPHILS # (AUTO) 11.1 K/uL (1.8-7.7); NEUTROPHILS % (AUTO) 98.1 % (40.0-70.0); PLATELET COUNT (AUTO) 301 K/uL (130-430); RED CELL DISTRIBUTION WIDTH 13.1 % (9.0-15.0); WHITE BLOOD COUNT (AUTO) 11.4 K/uL (4.8-10.8)
--- NOTE | 2020-02-14 07:15 | NUR ---
Opening Note Received report from endorsing RN. Pt AAOx4, with SOB on exertion on high flow O2 100% 30L and NRB 15L 100%. Pt states no pain at this time. Midline in place. Able to feed self and void. Some bouts of diarrhea/loose stools. No other complaints at this time.
[2020-02-14 07:36] LABS: ALBUMIN 1.8 g/dL (3.4-4.8); CALCIUM 8.1 mg/dL (8.4-11.0); CREATININE 0.82 mg/dL (0.55-1.30); POTASSIUM 4.8 mmol/L (3.5-5.1); TOTAL BILIRUBIN 0.6 mg/dL (0.0-1.0)
--- NOTE | 2020-02-14 07:40 | NUR ---
Updates Discussed with pt regarding wishes and pt states he does not want to be intubated at this time but if he stops breathing agreeable for intubation.
[2020-02-14] MEDS: methylPREDNISolone SOD SUCC 40 MG/ML VIAL IVP SCH ×2 (09:05→20:45)
[2020-02-14] MEDS: glipiZIDE XL 5 MG TAB ( GLUCOTROL XL) PO SCH (09:06)
[2020-02-14] MEDS: CHOLECALCIFEROL (VITAMIN D3) 2,000 UNIT TABLET PO SCH (09:06)
[2020-02-14] MEDS: ASCORBIC ACID 500 MG TABLET PO SCH ×2 (09:06→20:45)
[2020-02-14] MEDS: ENOXAPARIN SODIUM 100 MG/ML SYRINGE SUBCUT SCH ×2 (09:07→20:52)
--- NOTE | 2020-02-14 09:50 | NUR ---
Pt able to eat some cereal with milk. Had loose BM x2. Able to prone self and lay on side with some assistance.
[2020-02-14] MEDS: INSULIN REGULAR, HUMAN 100 UNITS/ML, 10 ML VIAL (humuLIN R) SUBCUT PRN ×3 (12:30→20:51)
--- NOTE | 2020-02-14 18:00 | NUR ---
Updates given to regarding pt. No other concerns noted.
--- NOTE | 2020-02-14 19:15 | NUR ---
Closing Pt laying prone at this time in no acute distress. Endorsed plan of care to production shift supervisor RN.
--- NOTE | 2020-02-14 19:15 | NUR ---
change of shift.pt.presents isolation status droplet covid19+status.pt.presents o2 therapy via high flow/non-rebreather mask. 02-sat%=90%.pt.presents picc line;location rt.bicept.intact;patent iv lock.pt.utilizing the urinal w/in access of the pt.pt.capable to reposition self.general status stable.respiratory status slight labored.call light/telephone w/in access of the pt.
--- NOTE | 2020-02-14 20:00 | NUR ---
pt.assessed.v/s assessed values w/in normal limits.o2 sat%=92%.pt.utilizing the high flow mode/non-rebreather mask concurrently.picc line intact;patent iv lock.i have apprised the pt.that snacks/beverages are available w/in the shift. no requests posited re;snacks.pt.inquired of the dinner tray;to f/u.pt.utilizing the urinal w/in access of the pt.no c/o pain,nausea.pt.capable to reposition self.general status stable.respiratory status slight labored.call light/telephone w/in access of the pt.
--- NOTE | 2020-02-14 20:30 | NUR ---
i have assessed the blood glucose value;202mg/dl.i have apprised the pt.of the blood glucose value.to review the administration insulin per the sliding scale parameters.
[2020-02-14] MEDS: INSULIN GLARGINE 100 UNITS/ML 10 ML VIAL SUBCUT SCH (20:53)
--- NOTE | 2020-02-14 21:00 | NUR ---
2100pmedications administered.pt.capable to ingest the po medications w/out difficulty.i have administered insulin;regular: 2-units per the sliding scale.i have administered lantus:20-units scheduled dose.i have administered lovenox;sq.pt.had requested dinner tray/water.i have assisted the pt.w dinner/provided the water.
--- NOTE | 2020-02-14 22:00 | NUR ---
pt.assessed.v/s assessed values w/in normal limits.o2-sat%=90%.pt.has assumed the prone position.high flow/non-rebreather administering the o2. i have attended to the urinal;measured/cleaned placed w/in access of the pt.general status stable.respiratory status stable; slight labored.call light/telephone w/in access of the pt.i have administered the zosyn;abx;ivpb 2200p dose.
[2020-02-15] VITALS (23 sets, daily range): BP systolic 94–135
--- NOTE | 2020-02-15 | NUR ---
pt.assessed.v/s assessed values w/in normal limits.02-sat%=84%.i have re-iterated to the pt.to attend to breathing excercises;deep breathing/incentive spirometer.pt.has maintained the prone position.no c/o pain,nausea.no requests posited@this hour.general status stable.respiratory status slight labored.call light/telephone w/in access of the pt.
--- NOTE | 2020-02-15 02:00 | NUR ---
pt.assessed.v/s assessed values w/in normal limits.02-sat%=86%.pt.has assumed the prone position.pt.capable to reposition self.picc line intact;patent iv lock.i have attended to the urinal measured/cleaned placed w/in access of the pt.pt.requested water.i have provided the water.general status stable.respiratory status slight labored.no c/o pain,nausea.call light/telephone placed w/in access of the pt.
[2020-02-15] MEDS: ALBUTEROL MDI INHALATION 8 GM INH INH SCH ×4 (02:19→20:28)
--- NOTE | 2020-02-15 04:00 | NUR ---
pt.assessed.v/s assessed values w/in normal limits;02-sat%=92%.pt.capable to reposition self.picc line intact;patent iv lock. urinal w/in access of the pt.no c/o pain,nausea.general status stable.respiratory status stable;slight labored,call light/telephone w/in access of the pt.
[2020-02-15] MEDS: PIPERACILLIN/TAZO 4.5GM/DEX-IS 100 ML IV SCH ×3 (05:18→21:08)
--- NOTE | 2020-02-15 06:30 | NUR ---
pt.assessed.pt.assisted w the urinal.measured/cleaned placed w/in access of the pt.o2-sat%=88%.i have assessed the blood glucose;value;157mg/dl.i have administered insulin;regular;2-units.no c/o pain,nausea.i have attended to the picc line dsg change. no requests posited@this hour.pt.capable to reposition self.general status stable.respiratory status stable;slight labored.call lihght/telephone placed w/in access of the pt.
[2020-02-15] MEDS: INSULIN REGULAR, HUMAN 100 UNITS/ML, 10 ML VIAL (humuLIN R) SUBCUT PRN ×4 (06:59→21:31)
--- NOTE | 2020-02-15 07:50 | NUR ---
Opening Notes Pt received from night RN using SBAR.
--- NOTE | 2020-02-15 09:20 | NUR ---
CHG Pt provided CHG with partial linen change, pt tolerated well.
--- NOTE | 2020-02-15 09:25 | NUR ---
Breakfast Pt assisted with consumption of breakfast tray.
[2020-02-15] MEDS: ASCORBIC ACID 500 MG TABLET PO SCH ×2 (09:27→21:08)
[2020-02-15] MEDS: CHOLECALCIFEROL (VITAMIN D3) 2,000 UNIT TABLET PO SCH (09:28)
[2020-02-15] MEDS: methylPREDNISolone SOD SUCC 40 MG/ML VIAL IVP SCH ×2 (09:28→21:08)
[2020-02-15] MEDS: ENOXAPARIN SODIUM 100 MG/ML SYRINGE SUBCUT SCH ×2 (09:28→21:10)
[2020-02-15] MEDS: glipiZIDE XL 5 MG TAB ( GLUCOTROL XL) PO SCH (09:29)
[2020-02-15] MEDS: IPRATROPIUM BROM 0.5 MG/2.5 ML VIAL.NEB (ATROVENT) INH SCH (13:00)
--- NOTE | 2020-02-15 19:10 | NUR ---
Closing Notes Pt endorsed to night RN
[2020-02-15] MEDS: INSULIN GLARGINE 100 UNITS/ML 10 ML VIAL SUBCUT SCH (21:00)
[2020-02-16] VITALS (24 sets, daily range): BP systolic 99–140
[2020-02-16] MEDS: ALBUTEROL MDI INHALATION 8 GM INH INH SCH ×4 (00:49→19:00)
[2020-02-16] MEDS: LORazepam 2 MG/ML VIAL IVP PRN (03:27)
[2020-02-16] MEDS: PIPERACILLIN/TAZO 4.5GM/DEX-IS 100 ML IV SCH ×3 (06:51→22:06)
[2020-02-16] MEDS: INSULIN REGULAR, HUMAN 100 UNITS/ML, 10 ML VIAL (humuLIN R) SUBCUT PRN ×3 (07:04→20:40)
--- NOTE | 2020-02-16 07:30 | NUR ---
Opening Notes Pt received from Amarjit MENJIVAR using SBAR.
[2020-02-16] MEDS: CHOLECALCIFEROL (VITAMIN D3) 2,000 UNIT TABLET PO SCH (08:28)
[2020-02-16] MEDS: ASCORBIC ACID 500 MG TABLET PO SCH ×2 (08:28→20:38)
[2020-02-16] MEDS: methylPREDNISolone SOD SUCC 40 MG/ML VIAL IVP SCH ×2 (08:28→20:37)
[2020-02-16] MEDS: ENOXAPARIN SODIUM 100 MG/ML SYRINGE SUBCUT SCH ×2 (08:29→20:41)
[2020-02-16] MEDS: glipiZIDE XL 5 MG TAB ( GLUCOTROL XL) PO SCH (08:31)
--- NOTE | 2020-02-16 09:45 | NUR ---
Breakfast Assisted pt with breakfast tray and consumption of fluids. Pt provided oral care and tolerated well.
[2020-02-16 10:43] LABS: BASOPHILS % (AUTO) 0.1 % (0.0-2.0); EOSINOPHILS # (AUTO) 0.1 K/uL (0.0-0.4); EOSINOPHILS % (AUTO) 0.5 % (0.0-4.0); HEMATOCRIT 48.5 % (36-54); HEMOGLOBIN 15.7 g/dL (14.0-18.0); LYMPHOCYTES # (AUTO) 0.3 K/uL (1.0-5.5); LYMPHOCYTES % (AUTO) 2.6 % (20.5-51.5); MEAN CORPUSCULAR HEMOGLOBIN 30 pg (27-31); MEAN CORPUSCULAR HGB CONC 32 % (32-36); MEAN CORPUSCULAR VOLUME 93 fL (79.0-98.0); MONOCYTES # (AUTO) 0.1 K/uL (0.0-1.0); MONOCYTES % (AUTO) 0.4 % (1.7-9.3); NEUTROPHILS # (AUTO) 12.8 K/uL (1.8-7.7); NEUTROPHILS % (AUTO) 96.4 % (40.0-70.0); PLATELET COUNT (AUTO) 280 K/uL (130-430); RED CELL DISTRIBUTION WIDTH 12.7 % (9.0-15.0); WHITE BLOOD COUNT (AUTO) 13.3 K/uL (4.8-10.8)
[2020-02-16 10:53] LABS: CALCIUM 8.1 mg/dL (8.4-11.0); CREATININE 0.8 mg/dL (0.55-1.30); POTASSIUM 4.3 mmol/L (3.5-5.1)
[2020-02-16 11:04] LABS: TOTAL BILIRUBIN 0.5 mg/dL (0.0-1.0)
[2020-02-16] MEDS ORDERED: INSULIN GLARGINE 100 UNITS/ML 10 ML VIAL SUBCUT ONE (11:15)
--- NOTE | 2020-02-16 12:36 | NUR ---
CHG Pt provided CHG with partial linen change. Pt tolerated well, will continue to monitor.
--- NOTE | 2020-02-16 12:50 | NUR ---
Lunch Pt assisted with lunch tray, pt tolerated well.
--- NOTE | 2020-02-16 17:57 | NUR ---
Family Spoke to pt's Yakelin, all questions answered at this time.
--- NOTE | 2020-02-16 18:00 | NUR ---
Dinner Assisted pt with feeding of dinner tray, pt tolerated well.
[2020-02-16] MEDS: IPRATROPIUM BROM 0.5 MG/2.5 ML VIAL.NEB (ATROVENT) INH SCH (19:00)
--- NOTE | 2020-02-16 19:30 | NUR ---
Closing Notes Pt endorsed to night RN using SBAR
--- NOTE | 2020-02-16 20:00 | NUR ---
AWAKE, ALERT, ORIENTED X3. ON BIPAP 02/18 BUR 14, FIO2 100%. SOB UPON EXERTION. KALPANA MIDLINE DRSG D/I. USES URINAL TO VOID. SR.
[2020-02-16] MEDS: INSULIN GLARGINE 100 UNITS/ML 10 ML VIAL SUBCUT SCH (20:39)
--- NOTE | 2020-02-16 21:00 | NUR ---
ACCU-CHEK 206, 4 UNITS REGULAR INSULIN SQ GIVEN PER SLIDING SCALE COV. ORAL CARE RENDERED. MULTIPLE REQUESTS.
[2020-02-17] VITALS (25 sets, daily range): BP systolic 103–164
--- NOTE | 2020-02-17 | NUR ---
VOIDED 350CC CLEAR SAMANTHA URINE VIA URINAL. 1 MODERATE BROWN WATERY STOOL DEFECATED VIA BEDPAN. CLEANED. PATRICIA-CARE GIVEN. PARTIAL LINEN CHANGE DONE. ASSISTS WITH TURNING. DON PROC WELL.
[2020-02-17] MEDS: LORazepam 2 MG/ML VIAL IVP PRN (00:46)
--- NOTE | 2020-02-17 00:46 | NUR ---
ATIVAN 0.5 MG IVP GIVEN FOR SLEEP.
[2020-02-17] MEDS: IPRATROPIUM BROM 0.5 MG/2.5 ML VIAL.NEB (ATROVENT) INH SCH (01:00)
--- NOTE | 2020-02-17 04:00 | NUR ---
DOZES ON AND OFF. TOOK SIPS OF WATER WITH ASSIST. HOB UP TO COMFORT. SOB UPON EXERTION.
--- NOTE | 2020-02-17 06:00 | NUR ---
SLEPT INTERMITTENTLY. ORAL CARE DONE. REMAINS IN GUARDED CONDITION.
[2020-02-17] MEDS: PIPERACILLIN/TAZO 4.5GM/DEX-IS 100 ML IV SCH ×3 (06:22→21:21)
--- NOTE | 2020-02-17 06:30 | NUR ---
ACCU-CHEK 120. NO INSULIN DUE PER SLIDING SCALE COV.
[2020-02-17] MEDS: INSULIN REGULAR, HUMAN 100 UNITS/ML, 10 ML VIAL (humuLIN R) SUBCUT PRN ×3 (06:55→21:18)
--- NOTE | 2020-02-17 07:25 | NUR ---
Opening Notes Pt received from Luis MENJIVAR using SBAR
[2020-02-17] MEDS: CHOLECALCIFEROL (VITAMIN D3) 2,000 UNIT TABLET PO SCH (09:01)
[2020-02-17] MEDS: ASCORBIC ACID 500 MG TABLET PO SCH ×2 (09:01→21:08)
[2020-02-17] MEDS: methylPREDNISolone SOD SUCC 40 MG/ML VIAL IVP SCH ×2 (09:01→21:08)
[2020-02-17] MEDS: ENOXAPARIN SODIUM 100 MG/ML SYRINGE SUBCUT SCH ×2 (09:02→21:10)
[2020-02-17] MEDS: glipiZIDE XL 5 MG TAB ( GLUCOTROL XL) PO SCH (09:02)
--- NOTE | 2020-02-17 09:45 | NUR ---
Breakfast Tray Assisted with feeding of breakfast tray.
--- NOTE | 2020-02-17 10:42 | NUR ---
1030 OTTO KEYES CALLED PT DESATING SPO2 83 ON 100% FIO2. PT COMPLAINED NOT ENOUGH FLOW, CHANGED BIPAP SETTING TO 15/8. PT MORE COMFORTABLE, OTTO GUZMAN AWARE Addendum: 02/17/20 at 1045 by Ailyn Jauregui RT Amended: Links added.
--- NOTE | 2020-02-17 11:05 | NUR ---
Position Assisted pt with side laying right position. Pt tolerated well. Will continue to monitor.
--- NOTE | 2020-02-17 11:18 | NUR ---
Family Spoke to pt's Yakelin, all questions answered at this time.
--- NOTE | 2020-02-17 11:49 | NUR ---
HIGH ALERT NOTE: Called Dr. Pena back at identified within the medical roster to verify physician authenticity. New medication orders received for Ativan and Lantus
[2020-02-17] MEDS ORDERED: INSULIN GLARGINE 100 UNITS/ML 10 ML VIAL SUBCUT ONE (12:00)
--- NOTE | 2020-02-17 13:00 | NUR ---
Lunch Tray Assisted pt with total care and feeding of lunch tray.
[2020-02-17] MEDS: ALBUTEROL MDI INHALATION 8 GM INH INH SCH ×2 (16:06→19:00)
--- NOTE | 2020-02-17 19:00 | NUR ---
Dinner Tray Pt assisted with feeding of dinner tray, pt tolerated well.
--- NOTE | 2020-02-17 19:19 | NUR ---
Closing Notes Pt endorsed to Luis MENJIVAR
--- NOTE | 2020-02-17 20:00 | NUR ---
AWAKE, ALERT, ORIENTED X3. IN NO APPARENT DISTRESS. DENIES PAIN. ON O2 WITH BIPAP 15/8, BUR 14, FIO2 100%. SOB UPON EXERTION. DESATURATES AT TIMES IN THE 80s. KALPANA MIDLINE DRSG D/I. USED URINAL TO VOID 400CC CLEAR SAMANTHA URINE. 1 MODERATE LIQUID BROWN STOOL DEFECATED VIA BEDPAN. CLEANED. PATRICIA-CARE, BACK CARE, SKIN CARE GIVEN. ORAL CARE DONE. ASSISTS WITH TURNING. PARTIAL LINEN CHANGE RENDERED.
--- NOTE | 2020-02-17 21:00 | NUR ---
ACCU CHECK 116, NO INSULIN DUE PER SLIDING SCALE COV.
[2020-02-17] MEDS: INSULIN GLARGINE 100 UNITS/ML 10 ML VIAL SUBCUT SCH (21:22)
[2020-02-18] VITALS (24 sets, daily range): BP systolic 95–155
--- NOTE | 2020-02-18 | NUR ---
DOZES ON AND OFF. AWAKENED MOMENTARILY, ASKED FOR BLANKET.
[2020-02-18] MEDS: ALBUTEROL MDI INHALATION 8 GM INH INH SCH ×2 (01:00→10:19)
--- NOTE | 2020-02-18 02:00 | NUR ---
ASLEEP. NO DISTRESS NOTED. REPOSITIONS SELF WELL.
--- NOTE | 2020-02-18 03:00 | NUR ---
VOIDED 550 CC CLEAR SAMANTHA URINE VIA URINAL. SIPS OF WATER TAKEN. LIP CARE AND ORAL CARE GIVEN.
--- NOTE | 2020-02-18 04:00 | NUR ---
VOIDED APPROX 400CC CLEAR YELLOW URINE VIA URINAL. SPILLED SOME URINE ON LINEN. PARTIAL LINEN CHANGE DONE. ASSISTS WITH TURNING. DESATURATES IN THE MID 80'S.
[2020-02-18] MEDS: PIPERACILLIN/TAZO 4.5GM/DEX-IS 100 ML IV SCH ×3 (05:36→22:00)
[2020-02-18] MEDS: INSULIN REGULAR, HUMAN 100 UNITS/ML, 10 ML VIAL (humuLIN R) SUBCUT PRN (06:36)
--- NOTE | 2020-02-18 06:37 | NUR ---
SLEPT FOR LONG PERIODS OF TIME. ACCU-CHEK 106, NO INSULIN DUE PER SLIDING SCALE COV. REMAINS IN GUARDED CONDITION.
--- NOTE | 2020-02-18 07:30 | NUR ---
Opening note: Report received from night RN. Assuming care now.
[2020-02-18] MEDS: glipiZIDE XL 5 MG TAB ( GLUCOTROL XL) PO SCH ×2 (09:00→09:50)
[2020-02-18] MEDS: CHOLECALCIFEROL (VITAMIN D3) 2,000 UNIT TABLET PO SCH ×2 (09:00→09:47)
[2020-02-18] MEDS: ASCORBIC ACID 500 MG TABLET PO SCH ×3 (09:00→21:00)
[2020-02-18] MEDS: methylPREDNISolone SOD SUCC 40 MG/ML VIAL IVP SCH ×2 (09:47→21:00)
[2020-02-18] MEDS: ENOXAPARIN SODIUM 100 MG/ML SYRINGE SUBCUT SCH ×2 (09:48→21:00)
[2020-02-18] MEDS: LORazepam 2 MG/ML VIAL IVP PRN (10:41)
--- NOTE | 2020-02-18 11:00 | NUR ---
Patient changed positions and saturations fell to high 70s and mid-80s. Patient stated "I just need to catch my breath, I'm nervous". PRN Ativan given with little relief. Dr Zamora called and ordered ABG/chest xray. Patient encouraged to lay more on side and prone position.
--- NOTE | 2020-02-18 11:46 | NUR ---
Dr Pena at bedside, updated on patients condition. No new orders.
--- NOTE | 2020-02-18 13:45 | NUR ---
Dr Zamora at bedside, spoke with patient. Patient says he is "doing good". Dr Zamora said he is okay with saturation in 80s%. No new orders.
--- NOTE | 2020-02-18 19:40 | NUR ---
Opening note Received report and assumed care. Patient in isolation for Covid19. Bipap in place and tolerating settings with O2 saturations of 92%. Semifawlers position with plana to prone after night medications given. Will continue to monitor.
[2020-02-18] MEDS: INSULIN GLARGINE 100 UNITS/ML 10 ML VIAL SUBCUT SCH (21:00)
--- NOTE | 2020-02-18 22:18 | NUR ---
Blood glucose 62 Patient awake and oriented x3, no signs of hypoglycemia noted or reported. Patient was fed and orange juice given. will continue to monitor.
[2020-02-19] VITALS (24 sets, daily range): BP systolic 101–149
--- NOTE | 2020-02-19 01:00 | NUR ---
Patient placed in prone position with minimal assist. will continue to monitor
[2020-02-19] MEDS: LORazepam 2 MG/ML VIAL IVP PRN ×2 (01:14→11:14)
[2020-02-19 06:39] LABS: BASOPHILS # (AUTO) 0.2 K/uL (0.0-0.2); BASOPHILS % (AUTO) 1.4 % (0.0-2.0); EOSINOPHILS # (AUTO) 0.1 K/uL (0.0-0.4); EOSINOPHILS % (AUTO) 0.5 % (0.0-4.0); HEMATOCRIT 45.5 % (36-54); HEMOGLOBIN 15.2 g/dL (14.0-18.0); LYMPHOCYTES # (AUTO) 0.2 K/uL (1.0-5.5); LYMPHOCYTES % (AUTO) 1.6 % (20.5-51.5); MEAN CORPUSCULAR HEMOGLOBIN 31 pg (27-31); MEAN CORPUSCULAR HGB CONC 33 % (32-36); MEAN CORPUSCULAR VOLUME 93 fL (79.0-98.0); MONOCYTES # (AUTO) 0.1 K/uL (0.0-1.0); MONOCYTES % (AUTO) 0.6 % (1.7-9.3); NEUTROPHILS # (AUTO) 11.8 K/uL (1.8-7.7); NEUTROPHILS % (AUTO) 95.9 % (40.0-70.0); PLATELET COUNT (AUTO) 257 K/uL (130-430); RED BLOOD CELL COUNT(AUTO) 4.91 MIL/uL (4.2-6.2); WHITE BLOOD COUNT (AUTO) 12.3 K/uL (4.8-10.8)
[2020-02-19 07:02] LABS: ALBUMIN 2.2 g/dL (3.4-4.8); CALCIUM 7.7 mg/dL (8.4-11.0); CREATININE 0.67 mg/dL (0.55-1.30); POTASSIUM 4.4 mmol/L (3.5-5.1); TOTAL BILIRUBIN 0.6 mg/dL (0.0-1.0)
[2020-02-19] MEDS: PIPERACILLIN/TAZO 4.5GM/DEX-IS 100 ML IV SCH ×3 (07:03→22:02)
--- NOTE | 2020-02-19 07:30 | NUR ---
Opening note: Report received from night RN. Assuming care now.
[2020-02-19] MEDS: glipiZIDE XL 5 MG TAB ( GLUCOTROL XL) PO SCH (08:46)
[2020-02-19] MEDS: CHOLECALCIFEROL (VITAMIN D3) 2,000 UNIT TABLET PO SCH (09:00)
[2020-02-19] MEDS: ASCORBIC ACID 500 MG TABLET PO SCH ×2 (09:00→21:59)
[2020-02-19] MEDS: methylPREDNISolone SOD SUCC 40 MG/ML VIAL IVP SCH ×2 (10:00→21:59)
[2020-02-19] MEDS: ENOXAPARIN SODIUM 100 MG/ML SYRINGE SUBCUT SCH ×2 (10:17→22:03)
--- NOTE | 2020-02-19 11:45 | NUR ---
Patient proned after eating snack and drinking water. Saturation dropped to 70s% while he coughed initially. He then was able to rest and saturation increased to low 90s%.
--- NOTE | 2020-02-19 13:57 | NUR ---
Nutrition F/U RD reviewed pt's current EMR record including diet hx, MD notes, RN notes, pertinent labs/meds/procedures, care trends, and care activity Admitting Diagnosis COVID-19, pneumonia, respiratory failure Reviewed Pertinent Medical/Surgical Hx Medical Record Other Medical History Comment: PMH: DM, HTN per physician's notes Pt also found w/ hyponatremia per physician notes SARS-CoV-2 Ag (Rapid) Positive 02/[address] bedside visit deferred d/t isolation precautions and PPE conservation efforts. Per EMR, pt remains w/ poor PO intake, at 31% average x last 12 meals. Spoke w/ pt's primary RN, who stated pt on BiPAP, and drank 100% Glucerna this morning and will encourage pt to drink another Glucerna later today. RN also stated that pt is feeling hungry, w/ respiratory status being tenuous and affecting his eating ability. Current diet order w/ oral nutrition supplement remains adequate and appropriate to meet needs. If poor PO intake persists, consider alternative means of nutrition if/when medically feasible per MD. Current Diet Order/Nutrition Support CCHO, finely chopped diet w/ Glucerna TID, Cash BID x 4 days Pertinent Medications SShumuLINR, Vit D3, Vit C, Zinc Sulfate, Glipitizide, Solumedrol, Zosyn Pertinent Labs Na 136 WNL, BUN 25 H, WBC 12.3 H, BG 119 H (trending down), POC BG 123-128 H (trending down), ALB 2.2 L (trending up) Skin Integrity Comment: Adrian scale: 18; no skin breakdown per RN report Current % PO Poor, 31% of 12 meals Estimated Energy Expenditure (kcals/day) 8731-7083 kcal/day (30-35 kcal/kg Adj IBW for acute state, respiratory) Estimated Protein Required (g/day) 105-162 gm/day (1.3-2 gm/kg Adj IBW for acute state, respiratory failure) Estimated Fluid Required (l/day) 2.4-2.8 L/day (1 ml/kcal/day for maintenance) Problem/Etiology/Signs/Symptoms Increased nutritional needs related to metabolic demands as evidenced by estimated nutritional requirements for acute state. *ongoing Expected Outcomes/Goals - Monitor appetite and PO intakes w/ goal of pt meeting at least 50% of estimated nutritional needs, labs trending WNL, normal GI function, and skin integrity/wt maintenance Dietitian Recommendations * Recommend continue CCHO, finely chopped diet w/ Glucerna TID, Cash BID (supplements provide an additional 850 kcal/day, 35 gm protein/day) Follow Up High Risk: F/U in 2-3 days
--- NOTE | 2020-02-19 14:20 | NUR ---
Dietitian Recommendations * Recommend continue CCHO, finely chopped diet w/ Glucerna TID, Cash BID (supplements provide an additional 850 kcal/day, 35 gm protein/day) Please see Nutrition F/U for details. EP,RD
[2020-02-19] MEDS: ALBUTEROL MDI INHALATION 8 GM INH INH SCH ×3 (14:54→20:17)
[2020-02-19] MEDS: INSULIN REGULAR, HUMAN 100 UNITS/ML, 10 ML VIAL (humuLIN R) SUBCUT PRN (17:40)
--- NOTE | 2020-02-19 19:30 | NUR ---
Opening note Received report and assumed care. Patient resting in semi fowlers position with bipap mask and tolerating settings. Calm and cooperative, no signs of respiratory distress noted or reported. Isolation for Covid 19 observed. KALPANA picc patent and locked. Requires assistance with reposition and ADL's. Will continue to monitor patient as per unit protocol.
--- NOTE | 2020-02-19 20:30 | NUR ---
Assessment completed, patient assisted with repositioning and toileting. will continue to monitor.
[2020-02-19] MEDS: INSULIN GLARGINE 100 UNITS/ML 10 ML VIAL SUBCUT SCH (21:00)
[2020-02-20] VITALS (25 sets, daily range): BP systolic 105–148
[2020-02-20] MEDS: LORazepam 2 MG/ML VIAL IVP PRN ×2 (00:59→08:59)
--- NOTE | 2020-02-20 01:46 | NUR ---
Repositioned on his left side. Cough noted when changing positions. Desaturation noted
[2020-02-20] MEDS: ALBUTEROL MDI INHALATION 8 GM INH INH SCH ×4 (02:08→19:40)
[2020-02-20] MEDS: PIPERACILLIN/TAZO 4.5GM/DEX-IS 100 ML IV SCH ×3 (06:42→22:00)
--- NOTE | 2020-02-20 07:25 | NUR ---
Received patient and endorsed report from [facility] shift nurse. Patient sleeping in bed, side rails x 3 up, call light with in reach.
[2020-02-20] MEDS: methylPREDNISolone SOD SUCC 40 MG/ML VIAL IVP SCH ×2 (08:32→21:00)
[2020-02-20] MEDS: CHOLECALCIFEROL (VITAMIN D3) 2,000 UNIT TABLET PO SCH (08:33)
[2020-02-20] MEDS: ASCORBIC ACID 500 MG TABLET PO SCH ×2 (08:33→21:00)
[2020-02-20] MEDS: ENOXAPARIN SODIUM 100 MG/ML SYRINGE SUBCUT SCH ×2 (08:33→21:00)
[2020-02-20] MEDS: glipiZIDE XL 5 MG TAB ( GLUCOTROL XL) PO SCH (08:35)
[2020-02-20 09:25] LABS: ALBUMIN 2.1 g/dL (3.4-4.8); CALCIUM 7.7 mg/dL (8.4-11.0); CREATININE 0.64 mg/dL (0.55-1.30); TOTAL BILIRUBIN 0.7 mg/dL (0.0-1.0)
[2020-02-20 09:32] LABS: BASOPHILS % (AUTO) 0.4 % (0.0-2.0); EOSINOPHILS % (AUTO) 0.5 % (0.0-4.0); HEMATOCRIT 43.5 % (36-54); HEMOGLOBIN 14.6 g/dL (14.0-18.0); LYMPHOCYTES # (AUTO) 0.4 K/uL (1.0-5.5); LYMPHOCYTES % (AUTO) 4.4 % (20.5-51.5); MEAN CORPUSCULAR HEMOGLOBIN 31 pg (27-31); MEAN CORPUSCULAR HGB CONC 34 % (32-36); MEAN CORPUSCULAR VOLUME 92 fL (79.0-98.0); MONOCYTES # (AUTO) 0.1 K/uL (0.0-1.0); MONOCYTES % (AUTO) 1.4 % (1.7-9.3); NEUTROPHILS # (AUTO) 8.4 K/uL (1.8-7.7); NEUTROPHILS % (AUTO) 93.3 % (40.0-70.0); PLATELET COUNT (AUTO) 230 K/uL (130-430); RED BLOOD CELL COUNT(AUTO) 4.72 MIL/uL (4.2-6.2); RED CELL DISTRIBUTION WIDTH 12.7 % (9.0-15.0)
[2020-02-20] MEDS ORDERED: DEXTROSE 50% JECT 50 ML DISP.SYRIN IVP ONE (09:45)
[2020-02-20] MEDS ORDERED: SODIUM POLYSTYRENE SULFONATE 15 GM/60 ML UDBTL PO ONE (09:45)
[2020-02-20] MEDS ORDERED: INSULIN REGULAR, HUMAN 100 UNITS/ML, 10 ML VIAL IVP ONE (09:45)
[2020-02-20] MEDS ORDERED: AMIODARONE HCL 450 MG/9 ML VIAL IV ONE (09:53)
[2020-02-20] MEDS ORDERED: AMIODARONE HCL 150 MG/3ML VIAL ONE (09:53)
[2020-02-20] MEDS ORDERED: AMIODARONE HCL 150 MG in D5W 100 ML IV ONE (10:30)
[2020-02-20] MEDS ORDERED: AMIODARONE HCL 450 MG in D5W 241 ML IV SCH (10:30)
--- NOTE | 2020-02-20 10:30 | NUR ---
Md Pena at bedside, informed requesting primary to contact patient and informed patient is unable to take bipap off with out desatting so can we order PPN. Md Pena requested I consult with pulmo.
--- NOTE | 2020-02-20 13:30 | NUR ---
Encouraged patient to try hi-flow in order to eat, patient refused despite educating pros and cons x 3, stated wanted to keep bipap on.
[2020-02-20] MEDS ORDERED: *TPN PER PHARMACY XX PRN (15:30)
[2020-02-20] MEDS ORDERED: *PPN PER PHARMACY XX PRN (15:45)
--- NOTE | 2020-02-20 16:10 | NUR ---
Md Zamora at bedside, informed patient refused to remove hi-flow stating unable to breathe off of bipap. Md Zamora ordered PPN and also educated patient the importance of attempting to use hi-flow, patient agreed.
--- NOTE | 2020-02-20 19:25 | NUR ---
Endorsed patient and gave report to NOC shift nurse. Side rails x 3 up. Call light with in reach.
--- NOTE | 2020-02-20 19:30 | NUR ---
Opening note Received report and assumed care. Patient resting and reporting feeling "frustrated". Patient requires encouragement and positive reaffirmation that he is doing well and today will be a productive day. Able to communicate partly with signs and verbally if bipap mask is for short time removed. Able to position by self but requires assist with pulling up in bed. KALPANA midline in place and patent. will continue to monitor patient as per unit protocol.
--- NOTE | 2020-02-20 20:30 | NUR ---
Assessment completed. Patient repositioned in bed. Medications provided as per may.
[2020-02-20] MEDS: INSULIN GLARGINE 100 UNITS/ML 10 ML VIAL SUBCUT SCH (21:00)
--- NOTE | 2020-02-20 21:10 | NUR ---
Call from family member Received call from patient's to inform "patient had a bad day". Reported patient will need immediate attention when calling. will follow up with patient's needs. Family member satisfied.
[2020-02-21] VITALS (24 sets, daily range): BP systolic 116–173
--- NOTE | 2020-02-21 00:10 | NUR ---
Patient assessed. Assisted with urinal and reposition. Decrease on O2 saturations noted upon exertion. Recovery time 5 minutes. Baseline O2 saturations 89-92%.
[2020-02-21] MEDS: INSULIN REGULAR, HUMAN 100 UNITS/ML, 10 ML VIAL (humuLIN R) SUBCUT PRN ×3 (00:15→17:06)
[2020-02-21] MEDS: LORazepam 2 MG/ML VIAL IVP PRN ×2 (00:16→15:46)
[2020-02-21] MEDS: ALBUTEROL MDI INHALATION 8 GM INH INH SCH ×4 (02:01→19:40)
--- NOTE | 2020-02-21 05:00 | NUR ---
Refused morning care. Reported "I am fatigued and I become short of breath easily". Will pass information to incoming shift.
[2020-02-21] MEDS: PIPERACILLIN/TAZO 4.5GM/DEX-IS 100 ML IV SCH ×3 (06:29→21:19)
[2020-02-21 07:21] LABS: ALBUMIN 2.3 g/dL (3.4-4.8); CALCIUM 7.8 mg/dL (8.4-11.0); CREATININE 0.6 mg/dL (0.55-1.30); PHOSPHORUS 3.4 mg/dL (2.7-4.5); POTASSIUM 4.4 mmol/L (3.5-5.1); TOTAL BILIRUBIN 0.7 mg/dL (0.0-1.0)
--- NOTE | 2020-02-21 07:30 | NUR ---
Opening Notes Pt received from Amarjit MENJIVAR using SBAR.
--- NOTE | 2020-02-21 07:35 | NUR ---
Report given to incoming shift using SBAR
[2020-02-21] MEDS: ASCORBIC ACID 500 MG TABLET PO SCH ×2 (08:17→21:15)
[2020-02-21] MEDS: methylPREDNISolone SOD SUCC 40 MG/ML VIAL IVP SCH ×2 (08:18→21:15)
[2020-02-21] MEDS: ENOXAPARIN SODIUM 100 MG/ML SYRINGE SUBCUT SCH ×2 (08:18→21:17)
[2020-02-21] MEDS: CHOLECALCIFEROL (VITAMIN D3) 2,000 UNIT TABLET PO SCH (08:18)
[2020-02-21] MEDS: glipiZIDE XL 5 MG TAB ( GLUCOTROL XL) PO SCH (08:30)
--- NOTE | 2020-02-21 08:45 | NUR ---
Breakfast Pt assisted with total assistance with breakfast tray. Pt tolerated well.
--- NOTE | 2020-02-21 09:10 | NUR ---
MD Dr. Zamora at bedside with pt.
--- NOTE | 2020-02-21 10:08 | NUR ---
Family Spoke to pt's Yakelin, provided update. All questions answered at this time.
--- NOTE | 2020-02-21 16:05 | NUR ---
Exercise Assisted pt with PROM for bilateral lower extremities and encouraged for AROM for upper extremities. Pt tolerated exercise in bed for roughly 8 minutes. Will continue to monitor.
--- NOTE | 2020-02-21 18:46 | NUR ---
RT RT informed that PT is now requesting to try Hi Flow.
[2020-02-21] MEDS: IPRATROPIUM BROM 0.5 MG/2.5 ML VIAL.NEB (ATROVENT) INH SCH (19:00)
--- NOTE | 2020-02-21 19:15 | NUR ---
Closing Notes Pt endorsed to night RN
--- NOTE | 2020-02-21 19:20 | NUR ---
Opening Note Received report from AM nurse using SBAR approach.
--- NOTE | 2020-02-21 20:00 | NUR ---
RT RT stated that patient requested to stay on BIPAP when she offered HI FLOW.
[2020-02-21] MEDS ORDERED: POTASSIUM ACETATE IV SCH ×8 (21:00)
[2020-02-21] MEDS ORDERED: TPN PERIPHERAL IV SCH ×8 (21:00)
[2020-02-21] MEDS ORDERED: [UNRECOGNIZED DRUG - OTHER] IV SCH ×8 (21:00)
[2020-02-21] MEDS ORDERED: SODIUM CHLORIDE IV SCH ×8 (21:00)
[2020-02-21] MEDS: INSULIN GLARGINE 100 UNITS/ML 10 ML VIAL SUBCUT SCH (22:41)
[2020-02-22] VITALS (28 sets, daily range): BP systolic 84–157
[2020-02-22] MEDS: LORazepam 2 MG/ML VIAL IVP PRN ×2 (00:02→15:32)
[2020-02-22] MEDS: IPRATROPIUM BROM 0.5 MG/2.5 ML VIAL.NEB (ATROVENT) INH SCH (01:00)
[2020-02-22] MEDS: ALBUTEROL MDI INHALATION 8 GM INH INH SCH ×2 (01:20→07:45)
[2020-02-22] MEDS: PIPERACILLIN/TAZO 4.5GM/DEX-IS 100 ML IV SCH ×3 (06:16→20:57)
[2020-02-22 06:28] LABS: ALBUMIN 2.4 g/dL (3.4-4.8); CALCIUM 7.9 mg/dL (8.4-11.0); CREATININE 0.72 mg/dL (0.55-1.30); PHOSPHORUS 3.4 mg/dL (2.7-4.5); POTASSIUM 4.2 mmol/L (3.5-5.1); TOTAL BILIRUBIN 0.6 mg/dL (0.0-1.0)
[2020-02-22] MEDS: INSULIN REGULAR, HUMAN 100 UNITS/ML, 10 ML VIAL (humuLIN R) SUBCUT PRN ×4 (06:59→21:39)
--- NOTE | 2020-02-22 07:20 | NUR ---
Opening Notes Pt received from MARIELOS RN using SBAR
--- NOTE | 2020-02-22 07:20 | NUR ---
Closing Note Endorsed report to AM nurse using SBAR approach.
[2020-02-22] MEDS: ASCORBIC ACID 500 MG TABLET PO SCH ×2 (08:47→20:57)
[2020-02-22] MEDS: ENOXAPARIN SODIUM 100 MG/ML SYRINGE SUBCUT SCH ×2 (08:47→21:02)
[2020-02-22] MEDS: BENZOCAINE/MENTHOL 1 EACH LOZENGE MM PRN (08:47)
[2020-02-22] MEDS: methylPREDNISolone SOD SUCC 40 MG/ML VIAL IVP SCH ×2 (08:47→20:57)
[2020-02-22] MEDS: CHOLECALCIFEROL (VITAMIN D3) 2,000 UNIT TABLET PO SCH (08:47)
[2020-02-22] MEDS: glipiZIDE XL 5 MG TAB ( GLUCOTROL XL) PO SCH (08:48)
--- NOTE | 2020-02-22 10:14 | NUR ---
Family Spoke to pts Yakelin, provided update. All questions answered at this time.
--- NOTE | 2020-02-22 11:00 | NUR ---
Assisted Dr. Zamora in intubation of patient. Pt. intubated @ 1120 with 7.5 ETT @ 24cm LL. Initial settings are AC 18 VT 500 PEEP +10 on 100% FIO2.
[2020-02-22] MEDS ORDERED: NALOXONE HCL 0.4 MG/ML AMP (NARCAN) IVP PRN (11:30)
[2020-02-22] MEDS ORDERED: PROPOFOL DRIP 100 ML IV ONE (11:36)
[2020-02-22] MEDS: PROPOFOL DRIP 100 ML IV PRN ×4 (12:33→21:42)
[2020-02-22] MEDS: MORPHINE I.V. DRIP 100 ML IV PRN (13:00)
--- NOTE | 2020-02-22 13:10 | NUR ---
CHG Pt provided CHG with linen change, pt tolerated well.
[2020-02-22] MEDS ORDERED: ETOMIDATE 20 MG/ 10 ML VIAL (AMIDATE) IVP ONE (15:03)
[2020-02-22] MEDS ORDERED: ROCURONIUM BROMIDE 10 MG/ML (ZEMURON) IV ONE (15:03)
--- NOTE | 2020-02-22 15:25 | NUR ---
WOUND EVALUATION: Wound Consult received from Dr. Zamora. Thank you, Dr. Zamora, for the consult. Patient received in a Mehdi Bed with an IsoFlex DOMINIC mattress, sedated. Patient is unable to turn in bed independently. Adrian Score is an 18. Past Medical History: Diabetes Mellitus, Hypertension. Recent Labs: WBC 9.0 (13.3 on 02/15), RBC 4.72, hemoglobin 14.6, hematocrit 43.5, sodium 133, glucose 224, POC glucose 269, magnesium 2.2, serum total protein 6.0, albumin 2.4, D-dimer 1080. Microbiology: Blood culture results x2 negative. Urine culture results negative. MRSA screen results negative x2. Endotracheal sputum culture results in progress. Intrinsic factors that delay wound healing: Diabetes Mellitus, Hypoalbuminemia. Extrinsic factors that delay wound healing: Immobility. Wound Assessment: 1. Anterior Nose Abrasion. Wound bed has 95% black scab (a few small scattered scabs included in measurement), 5% dry red tissue. No odor, no drainage. Yaquelin-wound intact. Measures 2.4 cm x 2.5 cm. Recommend: No dressing needed. Continue to monitor site every shift. Contact wound care nurse if site opens or drains. Also recommend: Reposition patient every 2 hours with pillow support and off-load pressure areas with pillows for pressure re-distribution. Offload, elevate and float bilateral heels with pillows. Perform skin care and monitor skin integrity Q shift. Use moisture barrier cream on buttocks and other moisture susceptible areas QID and as needed for soiling. Place patient on a low air-loss mattress.
--- NOTE | 2020-02-22 17:42 | NUR ---
Nutrition F/U RD reviewed pt's current EMR record including diet hx, MD notes, RN notes, pertinent labs/meds/procedures, care trends, and care activity Admitting Diagnosis COVID-19, pneumonia, respiratory failure Reviewed Pertinent Medical/Surgical Hx Medical Record Other Medical History Comment: PMH: DM, HTN per physician's notes Pt also found w/ hyponatremia per physician notes SARS-CoV-2 Ag (Rapid) Positive 02/04 Subjective Information: Nutrition Consult received today d/t recent intubation. RD bedside visit deferred d/t isolation precautions and PPE conservation efforts. RD spoke w/ pt's primary RN who reported that pt was intubated today, and will have a NGT/OGT placement soon to start EN support. Pt had been on PPN for supplemental nutrition support a few days d/t low PO intakes per RN report. RN confirmed that pt's gut is fine and able to tolerate EN support at this time. Pt is not yet meeting nutritional needs. Current Diet Order/Nutrition Support: PPN D20%, AA8.5% at 50 ml/hr via peripheral line Provides: 612 kcal/day, 51 gm protein/day, 1200 ml total volume/day, and GIR: 0.9 gm CHO/kg/min Meets: 57% of lower end of estimated caloric needs and 49% of lower end of estimated protein needs Pertinent Medications: SSI, VIT D3, VIT C, zinc sulfate, glipizide, solu-medrol, propofol at 29.4 ml/hr (776 kcal/day) Pertinent Labs: Na 133 L (trending down), BUN 7 WNL (improved), WBC 9 WNL (improved), BG 224 H (trending up), POC BG 269 H (trending up), ALB 2.4 L (trending up) Skin Integrity Comment: Adrian scale: 18; no skin breakdown per RN report Current % PO Poor, 31% of 12 meals NEW Estimated Energy Expenditure (kcals/day) 4809-7115 kcal/day (11-14 kcal/kg CBW for critical illness, BMI: 31 kg/m2, pt on vent) Estimated Protein Required (g/day) 105-162 gm/day (1.3-2 gm/kg Adj IBW for acute state, respiratory failure) NEW Estimated Fluid Required (l/day) 1-1.4 L/day (1 ml/kcal/day for maintenance) Problem/Etiology/Signs/Symptoms Increased nutritional needs related to metabolic demands as evidenced by estimated nutritional requirements for acute state. *ongoing Expected Outcomes/Goals - Monitor appetite and PO intakes w/ goal of pt meeting at least 50% of estimated nutritional needs, labs trending WNL, normal GI function, and skin integrity/wt maintenance Dietitian Recommendations * Recommend Vital HP at 25 ml/hr (goal rate) via NGT/OGT Provides (w/ propofol infusing at 29.4 ml/hr (776 kcal/day)): 1376 kcal/day, 53 gm protein/day, and 502 ml free water/day Meets: 100% of upper end of estimated caloric needs and 50% of lower end of estimated protein needs * Consider protein supplement if/when propofol infusion rate is decreased to prevent overfeeding during critical illness Follow Up High Risk: F/U in 2-3 days
--- NOTE | 2020-02-22 17:55 | NUR ---
Dietitian Recommendations * Recommend Vital HP at 25 ml/hr (goal rate) via NGT/OGT Provides (w/ propofol infusing at 29.4 ml/hr (776 kcal/day)): 1376 kcal/day, 53 gm protein/day, and 502 ml free water/day Meets: 100% of upper end of estimated caloric needs and 50% of lower end of estimated protein needs * Consider protein supplement if/when propofol infusion rate is decreased to prevent overfeeding during critical illness LP, RD Please refer to Nutrition F/U for details.
--- NOTE | 2020-02-22 19:25 | NUR ---
Opening Note Received report from AM nurse using SBAR approach.
[2020-02-22] MEDS ORDERED: POTASSIUM ACETATE IV SCH ×8 (21:00)
[2020-02-22] MEDS ORDERED: SODIUM CHLORIDE IV SCH ×8 (21:00)
[2020-02-22] MEDS ORDERED: [UNRECOGNIZED DRUG - OTHER] IV SCH ×8 (21:00)
[2020-02-22] MEDS ORDERED: TPN PERIPHERAL IV SCH ×8 (21:00)
[2020-02-22] MEDS: INSULIN GLARGINE 100 UNITS/ML 10 ML VIAL SUBCUT SCH (21:40)
--- NOTE | 2020-02-22 22:15 | NUR ---
PICC line dressing change Changed PICC line dressing on patient. Sterile procedure applied.
[2020-02-23] VITALS (29 sets, daily range): BP systolic 84–147
--- NOTE | 2020-02-23 02:00 | NUR ---
CHG Cleaned the patient with CHG wipes. Patient had a bowel movement, cleaned with maria wipes and changed all linens and gown. Patient tolerated well.
--- NOTE | 2020-02-23 03:30 | NUR ---
WITNESS WITNESSED RN TITRATE DIPRIVAN TO 40 MCG, AND MORPHINE TO 4 MG.
[2020-02-23] MEDS: PIPERACILLIN/TAZO 4.5GM/DEX-IS 100 ML IV SCH ×2 (05:10→13:44)
[2020-02-23] MEDS: PROPOFOL DRIP 100 ML IV PRN ×4 (05:26→20:19)
[2020-02-23] MEDS: INSULIN REGULAR, HUMAN 100 UNITS/ML, 10 ML VIAL (humuLIN R) SUBCUT PRN ×4 (07:02→20:43)
--- NOTE | 2020-02-23 07:30 | NUR ---
Opening note: Report received from night RN. Assuming care now.
[2020-02-23 07:37] LABS: ALBUMIN 2.2 g/dL (3.4-4.8); CREATININE 0.87 mg/dL (0.55-1.30); PHOSPHORUS 4.6 mg/dL (2.7-4.5); POTASSIUM 4.6 mmol/L (3.5-5.1); TOTAL BILIRUBIN 0.4 mg/dL (0.0-1.0)
[2020-02-23] MEDS: ALBUTEROL MDI INHALATION 8 GM INH INH SCH ×3 (08:15→19:31)
--- NOTE | 2020-02-23 09:45 | NUR ---
NGT placed without incident. Placement confirmed via auscultation. Confirmed with charge nurse.
[2020-02-23] MEDS: ASCORBIC ACID 500 MG TABLET PO SCH ×2 (09:54→20:16)
[2020-02-23] MEDS: glipiZIDE XL 5 MG TAB ( GLUCOTROL XL) PO SCH (09:54)
[2020-02-23] MEDS: CHOLECALCIFEROL (VITAMIN D3) 2,000 UNIT TABLET PO SCH (09:55)
[2020-02-23] MEDS: methylPREDNISolone SOD SUCC 40 MG/ML VIAL IVP SCH ×2 (09:55→20:16)
[2020-02-23] MEDS: ENOXAPARIN SODIUM 100 MG/ML SYRINGE SUBCUT SCH ×2 (09:55→20:17)
[2020-02-23] MEDS: MORPHINE I.V. DRIP 100 ML IV PRN (11:37)
[2020-02-23] MEDS ORDERED: COMMUNICATION ORDER XX ONE (16:45)
--- NOTE | 2020-02-23 16:50 | NUR ---
RT NOTES PER DR. HOLT PLACE PT ON PRESSURE CONTROL 30, RR 22, PEEP 12, FIO2 100%. FOLLOW BY ABG IN 1HR. RN ALEX MADE AWARE. WILL CONTINUE MONITORING.
--- NOTE | 2020-02-23 18:00 | NUR ---
RT NOTES REPORTED ABG CRITICAL VALUE TO DR. HOLT. PER INCREASED RESPIRATORY RATE TO 26 AT THIS TIME. RN ALEX MADE AWARE. WILL CONTINUE MONITORING.
[2020-02-23] MEDS: IPRATROPIUM BROM 0.5 MG/2.5 ML VIAL.NEB (ATROVENT) INH SCH (19:00)
--- NOTE | 2020-02-23 19:25 | NUR ---
Opening Note Received report from AM nurse using SBAR approach.
--- NOTE | 2020-02-23 19:30 | NUR ---
WITNESS Witnessed Katey RN titrate morphine to 4mg.
[2020-02-23] MEDS: INSULIN GLARGINE 100 UNITS/ML 10 ML VIAL SUBCUT SCH (20:44)
[2020-02-23] MEDS ORDERED: TPN PERIPHERAL IV SCH ×8 (21:00)
[2020-02-23] MEDS ORDERED: POTASSIUM ACETATE IV SCH ×8 (21:00)
[2020-02-23] MEDS ORDERED: [UNRECOGNIZED DRUG - OTHER] IV SCH ×8 (21:00)
[2020-02-23] MEDS ORDERED: SODIUM CHLORIDE IV SCH ×8 (21:00)
--- NOTE | 2020-02-23 21:00 | NUR ---
WITNESS Witnessed OTTO Del Toro titrate Diprivan Drip 30mcg/kg/min.
--- NOTE | 2020-02-23 23:15 | NUR ---
Patient's HR is at 120's-130's. Patient has no temperature and followed sepsis protocol but patient does not fall in that category. Contacted Dr. Bradley, awaiting call back.
[2020-02-24] VITALS (36 sets, daily range): BP systolic 63–147
--- NOTE | 2020-02-24 00:03 | NUR ---
MD Dr. Bradley called back. New orders received.
[2020-02-24] MEDS ORDERED: DILTIAZEM HCL 25 MG/5 ML VIAL IVP ONE ×2 (00:15→00:45)
[2020-02-24] MEDS: PROPOFOL DRIP 100 ML IV PRN ×3 (00:52→23:38)
[2020-02-24] MEDS: IPRATROPIUM BROM 0.5 MG/2.5 ML VIAL.NEB (ATROVENT) INH SCH ×4 (01:00→19:00)
[2020-02-24] MEDS: ALBUTEROL MDI INHALATION 8 GM INH INH SCH ×4 (02:18→20:17)
[2020-02-24] MEDS: INSULIN REGULAR, HUMAN 100 UNITS/ML, 10 ML VIAL (humuLIN R) SUBCUT PRN ×4 (06:05→21:37)
--- NOTE | 2020-02-24 07:20 | NUR ---
RT NOTES Pt's ETT cuff keeps losing air, just what NOC shift RT mentioned. RN made aware.
--- NOTE | 2020-02-24 07:20 | NUR ---
Closing Note Endorsed report to AM nurse using SBAR approach.
--- NOTE | 2020-02-24 07:30 | NUR ---
Opening Note Received plan of care via sbar from endorsing RN.
[2020-02-24 07:56] LABS: ALBUMIN 2.7 g/dL (3.4-4.8); CALCIUM 8.4 mg/dL (8.4-11.0); CREATININE 0.86 mg/dL (0.55-1.30); PHOSPHORUS 5.1 mg/dL (2.7-4.5); POTASSIUM 5.3 mmol/L (3.5-5.1); TOTAL BILIRUBIN 0.4 mg/dL (0.0-1.0)
[2020-02-24] MEDS: ENOXAPARIN SODIUM 100 MG/ML SYRINGE SUBCUT SCH ×2 (09:05→21:24)
[2020-02-24] MEDS: LINEZOLID 300 ML IV SCH ×2 (09:06→21:26)
[2020-02-24] MEDS: methylPREDNISolone SOD SUCC 40 MG/ML VIAL IVP SCH ×2 (09:06→21:26)
[2020-02-24] MEDS: CHOLECALCIFEROL (VITAMIN D3) 2,000 UNIT TABLET PO SCH (09:06)
[2020-02-24] MEDS: ASCORBIC ACID 500 MG TABLET PO SCH ×2 (09:06→21:24)
[2020-02-24] MEDS: glipiZIDE XL 5 MG TAB ( GLUCOTROL XL) PO SCH (09:07)
--- NOTE | 2020-02-24 10:30 | NUR ---
Spoke to Dr. Zamora on the phone. Provided patient update and labs. Received orders for Kayaxalate 15 grams PO and 1 GM of Calcium gluconate PO.
[2020-02-24] MEDS ORDERED: CALCIUM GLUCONATE 500 MG TAB Non-Formulary PO ONE (10:45)
[2020-02-24] MEDS ORDERED: SODIUM POLYSTYRENE SULFONATE 15 GM/60 ML UDBTL PO ONE (10:45)
--- NOTE | 2020-02-24 11:00 | NUR ---
Dr. Leyva at bedside. Provided patient update. Received PRN order for Cardizem 10mg IVP PRN for Heart Rate greater than 120. Also pm and AM labs for CBC.
[2020-02-24] MEDS ORDERED: CALCIUM GLUCONATE 1 GM in NS 100 ML IV ONE (11:15)
[2020-02-24] MEDS ORDERED: DILTIAZEM HCL 25 MG/5 ML VIAL IVP PRN (15:00)
--- NOTE | 2020-02-24 15:00 | NUR ---
Called Dr. Caldera to report sinus tach of 170. Patient given PRN order of Cardizem 10 mg IVP Q6 for HR > 120. Received order to also consult Dr. Causey for cardiology.
--- NOTE | 2020-02-24 15:04 | NUR ---
CONSULT CARDIO. CONSULTING MD: DR. HOYT SPOKE TO: ERIKA DIALED: [phone] ORDERED BY: DR. HOGAN
[2020-02-24 15:17] LABS: BASOPHILS # (AUTO) 0.1 K/uL (0.0-0.2); BASOPHILS % (AUTO) 0.7 % (0.0-2.0); EOSINOPHILS % (AUTO) 0.1 % (0.0-4.0); HEMATOCRIT 48.5 % (36-54); HEMOGLOBIN 15.7 g/dL (14.0-18.0); LYMPHOCYTES # (AUTO) 0.4 K/uL (1.0-5.5); LYMPHOCYTES % (AUTO) 3.3 % (20.5-51.5); MEAN CORPUSCULAR HEMOGLOBIN 31 pg (27-31); MEAN CORPUSCULAR HGB CONC 32 % (32-36); MEAN CORPUSCULAR VOLUME 96 fL (79.0-98.0); MONOCYTES # (AUTO) 0.4 K/uL (0.0-1.0); MONOCYTES % (AUTO) 3.5 % (1.7-9.3); NEUTROPHILS # (AUTO) 10.6 K/uL (1.8-7.7); NEUTROPHILS % (AUTO) 92.4 % (40.0-70.0); PLATELET COUNT (AUTO) 204 K/uL (130-430); RED BLOOD CELL COUNT(AUTO) 5.07 MIL/uL (4.2-6.2); RED CELL DISTRIBUTION WIDTH 13.2 % (9.0-15.0); WHITE BLOOD COUNT (AUTO) 11.5 K/uL (4.8-10.8)
--- NOTE | 2020-02-24 15:26 | NUR ---
Spoke with Dr. Causey and reported SVT rate of 172. Received order for Lopressor 5mg IVP Q6 PRN for heart rate greater than 120. Received instructions to wait 30 mins from Cardizem administration to give Lopressor. Also EKG on patient.
--- NOTE | 2020-02-24 15:26 | NUR ---
HIGH ALERT NOTE: Called Dr. Causey back at [phone] identified within the medical roster to verify physician authenticity.
[2020-02-24] MEDS: DILTIAZEM HCL 25 MG/5 ML VIAL IVP PRN (15:34)
[2020-02-24] MEDS: METOPROLOL TARTRATE 5 MG/5 ML VIAL IVP PRN (15:36)
--- NOTE | 2020-02-24 17:26 | NUR ---
Spoke with Dr. Causey and provided patient update post cardizem and lopressor dose. Received order to start patient on Cardizem drip at 10 mg/hr up to 15 mg/hr.
--- NOTE | 2020-02-24 17:35 | NUR ---
RT NOTES Dr Nicholson reintubated pt with 7.5 ETT secured at 25cm lipline. CO2 detector changed to yellow, mist noted in ETT. Bilateral b/s/chest rise noted. Pt back on vent w/ same settings.
--- NOTE | 2020-02-24 17:39 | NUR ---
HIGH ALERT NOTE: Called Dr. Causey back at [phone] identified within the medical roster to verify physician authenticity.
--- NOTE | 2020-02-24 19:02 | NUR ---
PAGED DR. HOYT [phone] SPOKE WITH DEN
[2020-02-24] MEDS ORDERED: NOREPINEPHRINE 4 MG/4 ML VIAL IV ONE (19:06)
--- NOTE | 2020-02-24 19:56 | NUR ---
RT NOTES 1955 TITRATED FIO2 TO 90%, PT TOLERATING WELL, SATURATION 99%. NO RESP DISTRESS NOTED. RN UNA AWARE. WILL CONTINUE TO MONITOR PT.
[2020-02-24] MEDS: MORPHINE I.V. DRIP 100 ML IV PRN (20:11)
[2020-02-24] MEDS ORDERED: TPN PERIPHERAL IV SCH ×7 (21:00)
[2020-02-24] MEDS ORDERED: [UNRECOGNIZED DRUG - OTHER] IV SCH ×7 (21:00)
[2020-02-24] MEDS ORDERED: SODIUM CHLORIDE IV SCH ×7 (21:00)
[2020-02-24] MEDS ORDERED: CALCIUM GLUCONATE IV SCH ×7 (21:00)
--- NOTE | 2020-02-24 21:06 | NUR ---
Paged Dr. Zamora and received call back from Dr. Mendoza. Clarified diet order and was given order to cancel TPN. Patient to remain on tubefeeding.
[2020-02-24] MEDS: INSULIN GLARGINE 100 UNITS/ML 10 ML VIAL SUBCUT SCH (21:35)
[2020-02-25] VITALS (36 sets, daily range): BP systolic 94–148
--- NOTE | 2020-02-25 00:20 | NUR ---
Received call from Dr. Causey. Provided report of low BP SBP of 63. Received order for levophed IV prn for low sbp and bolus 500 cc of NS IV.
[2020-02-25] MEDS: IPRATROPIUM BROM 0.5 MG/2.5 ML VIAL.NEB (ATROVENT) INH SCH ×3 (01:00→19:00)
[2020-02-25] MEDS ORDERED: NOREPINEPHRINE 4 MG/4 ML VIAL IV ONE (01:07)
--- NOTE | 2020-02-25 01:30 | NUR ---
RT NOTES 0130 SWITCHED PT BACK TO 100% FIO2. PT WAS ONLY SATURATING 88-89%.PT SATURATION 91%. NO RESP DISTRESS NOTED. RN UNA AWARE. WILL CONTINUE TO MONITOR PT.
[2020-02-25] MEDS: ALBUTEROL MDI INHALATION 8 GM INH INH SCH ×4 (02:10→19:54)
[2020-02-25] MEDS: PROPOFOL DRIP 100 ML IV PRN ×5 (03:47→23:18)
[2020-02-25] MEDS: INSULIN REGULAR, HUMAN 100 UNITS/ML, 10 ML VIAL (humuLIN R) SUBCUT PRN ×4 (06:17→22:18)
[2020-02-25 07:01] LABS: HEMATOCRIT 39.6 % (36-54); HEMOGLOBIN 13.1 g/dL (14.0-18.0); MEAN CORPUSCULAR HEMOGLOBIN 31 pg (27-31); MEAN CORPUSCULAR HGB CONC 33 % (32-36); MEAN CORPUSCULAR VOLUME 92 fL (79.0-98.0); PLATELET COUNT (AUTO) 178 K/uL (130-430); RED BLOOD CELL COUNT(AUTO) 4.29 MIL/uL (4.2-6.2); RED CELL DISTRIBUTION WIDTH 12.4 % (9.0-15.0); WHITE BLOOD COUNT (AUTO) 11.5 K/uL (4.8-10.8)
--- NOTE | 2020-02-25 07:09 | NUR ---
Report received from OTTO Ponce for continuation of care.
[2020-02-25 07:31] LABS: ALBUMIN 2.2 g/dL (3.4-4.8); CALCIUM 8.3 mg/dL (8.4-11.0); CREATININE 1.23 mg/dL (0.55-1.30); PHOSPHORUS 1.1 mg/dL (2.7-4.5); POTASSIUM 4.2 mmol/L (3.5-5.1); TOTAL BILIRUBIN 0.5 mg/dL (0.0-1.0)
[2020-02-25] MEDS: LINEZOLID 300 ML IV SCH ×2 (09:16→20:25)
[2020-02-25] MEDS: ENOXAPARIN SODIUM 100 MG/ML SYRINGE SUBCUT SCH ×2 (09:16→20:43)
[2020-02-25] MEDS: glipiZIDE XL 5 MG TAB ( GLUCOTROL XL) PO SCH (09:17)
[2020-02-25] MEDS: ASCORBIC ACID 500 MG TABLET PO SCH ×2 (09:17→20:42)
[2020-02-25] MEDS: CHOLECALCIFEROL (VITAMIN D3) 2,000 UNIT TABLET PO SCH (09:17)
[2020-02-25] MEDS: methylPREDNISolone SOD SUCC 40 MG/ML VIAL IVP SCH ×2 (09:18→20:42)
[2020-02-25 11:28] LABS: BAND % (MANUAL) 10 % (0-6); LYMPHOCYTES % (MANUAL) 2 % (20-46)
[2020-02-25 11:29] LABS: BASOPHILS % (MANUAL) 0 % (0-2); EOSINOPHILS % (MANUAL) 0 % (0-7); MONOCYTES % (MANUAL) 0 % (0-11)
--- NOTE | 2020-02-25 11:43 | NUR ---
Albumin not available, Peter in pharmacy notified.
[2020-02-25] MEDS: FLUCONAZOLE 200 mg/ NS 100 ML IV SCH (11:45)
[2020-02-25] MEDS ORDERED: ETOMIDATE 20 MG/ 10 ML VIAL (AMIDATE) IVP ONE (12:26)
[2020-02-25] MEDS: ALBUMIN HUMAN 25% 50 ML IV SCH ×3 (13:09→20:25)
--- NOTE | 2020-02-25 14:52 | NUR ---
Nutrition F/U RD reviewed pt's current EMR record including diet hx, MD notes, RN notes, pertinent labs/meds/procedures, care trends, and care activity Admitting Diagnosis: COVID-19, pneumonia, respiratory failure Medical History Comment: PMH: DM, HTN per physician's notes Pt also found w/ hyponatremia per physician notes 02/24 : notes: Chronic debility SARS-CoV-2 Ag (Rapid) Positive 02/04 Subjective Information: RD visit was deferred d/t COVID-19 Isolation precaution. Pt's primary RN Gage was not able to answer RD questions during rounds at unit earlier and RD had to s/w Reyna another OCEAN EXPORT COORDINATOR about pt. RD noted pt was w/ PPN order and EN order, elevated BG (350H), on vent and w/ propofol. RD was able to get report from Reyna around 1430 and was told that PPN has been discontinued, EN has been infusing w/ high residual this am and EN was turned off for ultrasound. Current EN is not yet meeting adequate nutrition but w/ propofol meets 78% of estimated calorie needs. May adjust EN infusion rate once propofol is titrated down. Current Diet Order/Nutrition Support: Vital High Protein at 25ml/hr (goal rate), FWF per physician via OGT Pertinent Medications: SSI, VIT D3, VIT C, zinc sulfate, Lovenox, solu-medrol, propofol at 30mcg/kg (465 kcal/day) Pertinent Labs: Na 135 L , BUN 42 H, WBC 11.5 H, BG 247 H, POC BG 350 H (trending up) Skin Integrity Comment: Adrian scale: 18; no skin breakdown per RN report Current % PO N/A Estimated Energy Expenditure (kcals/day) 4880-6425 kcal/day (11-14 kcal/kg CBW for critical illness, BMI: 31 kg/m2, pt on vent) NEW Estimated Protein Required (g/day) 98-150 gm/day (1.3-2 gm/kg IBW for acute state, respiratory failure) Estimated Fluid Required (l/day) 1-1.4 L/day (1 ml/kcal/day for maintenance) Problem/Etiology/Signs/Symptoms Increased nutritional needs related to metabolic demands as evidenced by estimated nutritional requirements for acute state. *ongoing Expected Outcomes/Goals - Monitor EN tolerance and intakes w/ goal of pt meeting at least 75% of estimated nutritional needs, labs trending WNL, normal GI function, and skin integrity/wt maintenance Dietitian Recommendations * Recommend: add Prosource BID. * Recommend continue Vital HP at 25 ml/hr (goal rate) via NGT/OGT Provides (w/ propofol infusing at 465 kcal/day): 1185 kcal/day, 83 gm protein/day, and 562 ml free water/day Meets: 86% of upper end of estimated caloric needs and 85% of lower end of estimated protein needs Follow Up High Risk: F/U in 2-3 days Addendum: 02/25/20 at [address] Additional Dietitian recommendation: *Discontinue PPN. Vijay of pharmacy informed. GET MOMIN
--- NOTE | 2020-02-25 15:05 | NUR ---
Dietitian Recommendations * Discontinue PPN. * Recommend: add Prosource BID. * Recommend continue Vital HP at 25 ml/hr (goal rate) via NGT/OGT Provides (w/ propofol infusing at 465 kcal/day): 1185 kcal/day, 83 gm protein/day, and 562 ml free water/day Meets: 86% of upper end of estimated caloric needs and 85% of lower end of estimated protein needs Please see Nutrition F/U for details. MERRILL, RD
--- NOTE | 2020-02-25 17:00 | NUR ---
Feeding resumed, residual is at 50mL.
--- NOTE | 2020-02-25 18:27 | NUR ---
Patient went into sustained heart rate above 120, cardizem administered.
[2020-02-25] MEDS: DILTIAZEM HCL 25 MG/5 ML VIAL IVP PRN (18:38)
[2020-02-25] MEDS: METOPROLOL TARTRATE 5 MG/5 ML VIAL IVP PRN (18:58)
--- NOTE | 2020-02-25 19:05 | NUR ---
TITRATED FIO2 DOWN TO 90%. SPO2 94%, HR 112.
--- NOTE | 2020-02-25 19:25 | NUR ---
PM SHIFT ASSESSMENT Pt is sedated on vent, tolerating current vent settings. SR/ST on monitor. Tubefeeding infusing. IVF infusing to KAL[place] PICCLINE. Tee catheter in place and draining to gravity. Safety precautions in place, call light within reach. Will continue to monitor.
--- NOTE | 2020-02-25 19:30 | NUR ---
Dr. Medrano here, orders to prone patient for 16hours. Will carry out order.
--- NOTE | 2020-02-25 20:30 | NUR ---
Jenny guevara Rn titrate diprivan to 35 mcg/kg/min.
[2020-02-25] MEDS: CEFEPIME 0.5 GM in D5W 50 ML IV SCH (20:43)
[2020-02-25] MEDS: MORPHINE I.V. DRIP 100 ML IV PRN (20:53)
[2020-02-25] MEDS: INSULIN GLARGINE 100 UNITS/ML 10 ML VIAL SUBCUT SCH (20:54)
[2020-02-25] MEDS ORDERED: TPN PERIPHERAL IV SCH ×8 (21:00)
[2020-02-25] MEDS ORDERED: [UNRECOGNIZED DRUG - OTHER] IV SCH ×8 (21:00)
[2020-02-25] MEDS ORDERED: SODIUM CHLORIDE IV SCH ×8 (21:00)
[2020-02-25] MEDS ORDERED: K PHOS IV SCH ×8 (21:00)
--- NOTE | 2020-02-25 21:00 | NUR ---
Jenny guevara Rn titrate diprivan to 40 mcg/kg/min.
--- NOTE | 2020-02-25 22:36 | NUR ---
Spoke to Yakelin, updated on patients status.
[2020-02-26] VITALS (33 sets, daily range): BP systolic 88–123
[2020-02-26] MEDS: ALBUTEROL MDI INHALATION 8 GM INH INH SCH ×3 (01:22→15:45)
--- NOTE | 2020-02-26 01:22 | NUR ---
RT NOTES patient pronned at this time with RN, no adverse reaction encountered, ETT patent with bilateral breathsounds auscultated with equal chest rise
--- NOTE | 2020-02-26 03:00 | NUR ---
Jenny guevara Rn titrate morphine to 5 mcg/kg/min.
[2020-02-26] MEDS: PROPOFOL DRIP 100 ML IV PRN ×4 (03:34→20:07)
[2020-02-26 06:01] LABS: EOSINOPHILS % (AUTO) 0.1 % (0.0-4.0); HEMOGLOBIN 11.7 g/dL (14.0-18.0); LYMPHOCYTES # (AUTO) 0.3 K/uL (1.0-5.5); MONOCYTES # (AUTO) 0.2 K/uL (0.0-1.0); NEUTROPHILS # (AUTO) 10.3 K/uL (1.8-7.7)
[2020-02-26 06:18] LABS: BASOPHILS % (AUTO) 0.3 % (0.0-2.0); HEMATOCRIT 35.6 % (36-54); LYMPHOCYTES % (AUTO) 2.8 % (20.5-51.5); MEAN CORPUSCULAR HEMOGLOBIN 31 pg (27-31); MEAN CORPUSCULAR HGB CONC 33 % (32-36); MEAN CORPUSCULAR VOLUME 95 fL (79.0-98.0); NEUTROPHILS % (AUTO) 94.8 % (40.0-70.0); PLATELET COUNT (AUTO) 141 K/uL (130-430); RED BLOOD CELL COUNT(AUTO) 3.77 MIL/uL (4.2-6.2); RED CELL DISTRIBUTION WIDTH 13.2 % (9.0-15.0); WHITE BLOOD COUNT (AUTO) 10.9 K/uL (4.8-10.8)
[2020-02-26 06:44] LABS: ALBUMIN 2.7 g/dL (3.4-4.8); CALCIUM 8.5 mg/dL (8.4-11.0); CREATININE 0.82 mg/dL (0.55-1.30); PHOSPHORUS 3.4 mg/dL (2.7-4.5); POTASSIUM 3.8 mmol/L (3.5-5.1); THYROID STIMULATING HORMONE 0.42 uIu/mL (0.36-3.74); TOTAL BILIRUBIN 0.6 mg/dL (0.0-1.0)
[2020-02-26] MEDS: INSULIN REGULAR, HUMAN 100 UNITS/ML, 10 ML VIAL (humuLIN R) SUBCUT PRN ×3 (06:45→18:18)
--- NOTE | 2020-02-26 07:25 | NUR ---
ENDORSEMENT Pt care endorsed to dayshift RN using nursing SBAR.
--- NOTE | 2020-02-26 07:30 | NUR ---
Opening note: Report received from night RN. Assuming care now.
[2020-02-26] MEDS: ASCORBIC ACID 500 MG TABLET PO SCH ×2 (09:10→20:03)
[2020-02-26] MEDS: CHOLECALCIFEROL (VITAMIN D3) 2,000 UNIT TABLET PO SCH (09:10)
[2020-02-26] MEDS: methylPREDNISolone SOD SUCC 40 MG/ML VIAL IVP SCH ×2 (09:10→20:03)
[2020-02-26] MEDS: CEFEPIME 0.5 GM in D5W 50 ML IV SCH ×2 (09:11→20:03)
[2020-02-26] MEDS: LINEZOLID 300 ML IV SCH ×2 (09:11→20:03)
[2020-02-26] MEDS: ENOXAPARIN SODIUM 100 MG/ML SYRINGE SUBCUT SCH ×2 (09:11→20:04)
[2020-02-26] MEDS: glipiZIDE XL 5 MG TAB ( GLUCOTROL XL) PO SCH (09:12)
--- NOTE | 2020-02-26 11:26 | NUR ---
Pictures taken of wound on sacrum. Dressing reapplied. Patient remains in prone position since 0100. Wound consult ordered. Spouse notified of wound.
[2020-02-26] MEDS: FLUCONAZOLE 200 mg/ NS 100 ML IV SCH (11:58)
--- NOTE | 2020-02-26 15:00 | NUR ---
WOUND EVALUATION: Late note for 02/26/2020 at 1500 secondary to patient care. Wound Consult received from Dr. Pena. Thank you, Dr. Pena, for the consult. Patient received in a Mehdi Bed with an IsoFlex DOMINIC mattress with low air-loss therapy, sedated, in prone position. Patient is unable to turn in bed independently. Adrian Score is an 11. Past Medical History: Diabetes Mellitus, Hypertension. Recent Labs: WBC 10.9 (9.0 on 02/19), RBC 3.77, hemoglobin 11.7, hematocrit 35.6, BUN 34, creatinine 0.82, GFR 102, glucose 293, POC glucose 337, serum total protein 5.4, albumin 2.7. Microbiology: Endotracheal sputum culture results in progress. Stool C. difficile results in progress. MRSA screen results negative x2. Intrinsic factors that delay wound healing: Diabetes Mellitus, Hypoalbuminemia. Extrinsic factors that delay wound healing: Immobility. Patient is on Diprivan at 40 mcg/kg/min, Morphine Sulfate at 5 mg/h. Patient was on Levophed but it was turned off last night. Per assessment by Dr. Medrano: Acute Hypoxemic Respiratory Failure, Covid-19 Pneumonia, Diabetes Mellitus Type II, Hyponatremia. Prognosis appears poor. Wound Assessment: 1. Anterior Nose Abrasion. Wound bed has 100% black scab. No odor, no drainage. Yaquelin-wound intact. Measures 2.3 cm x 2.0 cm. Recommend continue: No dressing needed. Continue to monitor site every shift. Contact wound care nurse if site opens or drains. 2. Sacral/Bilateral Buttocks area: Possible sDTI. Site has 85% dark discolored skin, 5% dark discolored tissue, 10% red tissue (a couple of scattered small areas). No odor, scant sanguineous drainage. Periwound intact. Surrounding tissue is erythematous. Site measures 10.3 cm x 8.5 cm. Recommend: Cleanse site with normal saline. Apply moisture barrier cream to periwounds. Apply Venelex ointment to wound beds. Cover with sacral foam dressing. Offload site at all times. Also recommend: Reposition patient side to side only with 1 pillow deep underneath trunk and one pillow deep underneath pelvis every 2 hours. Off-load pressure areas with pillows for pressure re-distribution. Offload, elevate and float bilateral heels with pillows. Perform skin care and monitor skin integrity Q shift. Use moisture barrier cream on buttocks and other moisture susceptible areas QID and as needed for soiling. Maintain patient on a low air-loss mattress.
--- NOTE | 2020-02-26 15:30 | NUR ---
Dr Medrano here for update. Informed of sustained increased blood sugar and inability to crush Glipizide for NGT. Ordered Lantus to decrease blood sugar. Informed of wound on sacrum.
--- NOTE | 2020-02-26 16:30 | NUR ---
Spouse called for update. Asked about [facility] culture and wound care. Asked for pictures of wound. Will ask director for advisement.
[2020-02-26] MEDS: INSULIN GLARGINE 100 UNITS/ML 10 ML VIAL SUBCUT SCH ×3 (16:31→20:06)
--- NOTE | 2020-02-26 16:40 | NUR ---
Spoke with Dr Pena about wound on sacrum. He stated he would call the patient's spouse tomorrow to visit with her about it.
--- NOTE | 2020-02-26 17:00 | NUR ---
Patient turned over to supine position without incident. Saturation O2 in mid-80% now.
--- NOTE | 2020-02-26 19:33 | NUR ---
Opening note: Report received from AM RN. ALL CARE ASSUMED, ALL SAFETY PRECAUTIONS IN PLACE. PATIENT REMAINS ON ISOLATION FOR COVID +.
--- NOTE | 2020-02-26 19:54 | NUR ---
EKG: PRODUCT SUPPORT CONSULTANT AT BEDSIDE PERFORMING EXAM. PATIENT TOLERATING WELL.
--- NOTE | 2020-02-26 21:06 | NUR ---
RN ROUNDS: PATIENT REPOSITIONED, TOLERATED WELL. BED IN LOWEST LOCKED POSITION WITH ALL SAFETY PRECAUTIONS IN PLACE. MONITORING AT THIS TIME.
--- NOTE | 2020-02-26 21:21 | NUR ---
FAMILY: SPOKE WITH VERBAL UPDATE GIVEN, ALL QUESTIONS ANSWERED. REQUESTED MD TO CALL WITH UPDATES IN THE MORNING. WILL ENDORSE ONTO AM NURSE.
[2020-02-26] MEDS: metroNIDAZOLE 250 mg/NS 50 ML IV SCH (22:18)
--- NOTE | 2020-02-26 22:32 | NUR ---
BRADYCARDIC: PATIENT NOTED WITH HR 48, REPOSITIONED, STIMULATED WITH NO EFFECT. PAGED MD DR. ALLEN. PENDING RETURN CALL.
--- NOTE | 2020-02-26 22:41 | NUR ---
PAGED DR. KIM FOR ORDERS DIALED: [phone] SPOKE TO: APRIL
--- NOTE | 2020-02-26 22:49 | NUR ---
TL: SPOKE WITH MD BOOTHE, NEW ORDERS RC'VD. TRANSCRIBED AND CHARGE AWARE.
--- NOTE | 2020-02-26 22:52 | NUR ---
ALEJANDRO DOYLE: AWARE OF BRADYCARDIA, NEW ORDERS RECEIVED AND TRANSCRIBED.
[2020-02-26] MEDS ORDERED: ATROPINE SULFATE 1 MG/10 ML SYRINGE IVP ONE ×2 (23:00→23:10)
[2020-02-26] MEDS ORDERED: NACL 0.9% 1,000 ML IV ONE (23:00)
--- NOTE | 2020-02-26 23:16 | NUR ---
ATROPINE: ATROPINE GIVEN 1MG Q5 MIN X 3 FOR BRADYCARDIA, MEDICATION EFFECTIVE HR 76 RRR. CHARGE AWARE, MONITORING PATIENT AT THIS TIME. FAMILY NOTIFIED OF CHANGE IN CONDITION.
[2020-02-27] VITALS (28 sets, daily range): BP systolic 105–194
--- NOTE | 2020-02-27 00:03 | NUR ---
SPUTUM: SPUTUM CX COLLECTED AND BROUGHT TO LAB BY RT.
--- NOTE | 2020-02-27 01:18 | NUR ---
NEURO: PATIENT DIPRIVAN DECREASED TO 35 MCG/KG/MIN, PATIENT OPENED EYES AND SQUEEZED LEFT AND RIGHT HAND WHEN ASKED. PATIENT NODDED HEAD WHEN ASKED IF HE CAN HEAR MY VOICE AND FOLLOW COMMANDS.
--- NOTE | 2020-02-27 01:40 | NUR ---
@0140 Pt. was proned and put in swimming position with the bed in reverse trendelenburg. Pt. tolerating well with SpO2 currently reading 94%. Size 7.5 ETT is secured with tape @ 25cm LL. Will continue to monitor.
--- NOTE | 2020-02-27 01:53 | NUR ---
PRONE: PATIENT PRONED, TOLERATED WELL WITHOUT INCIDENT.
--- NOTE | 2020-02-27 01:54 | NUR ---
C-DIFF SPECIMEN: SPECIMEN COLLECTED AND BROUGHT TO LAB.
[2020-02-27] MEDS: MORPHINE I.V. DRIP 100 ML IV PRN (02:42)
[2020-02-27] MEDS: PROPOFOL DRIP 100 ML IV PRN ×6 (03:39→21:27)
[2020-02-27] MEDS ORDERED: DOPamine PREMIX 250 ML IV PRN (04:30)
[2020-02-27] MEDS ORDERED: DOPamine PREMIX 250 ML IV ONE (04:32)
--- NOTE | 2020-02-27 04:49 | NUR ---
RN ROUNDS: REPOSITIONED PATIENTS ARMS, TOLERATED WELL. BED IN LOWEST LOCKED POSITION WITH ALL SAFETY PRECAUTIONS IN PLACE. MONITORING AT THIS TIME.
--- NOTE | 2020-02-27 04:49 | NUR ---
DOPAMINE: DOPAMINE STARTED AT 2 MCG/KG PER DR. ELLIS ORDER FOR PERSISTENT BRADYCARDIA.
[2020-02-27] MEDS: metroNIDAZOLE 250 mg/NS 50 ML IV SCH ×3 (05:04→22:21)
[2020-02-27] MEDS: INSULIN REGULAR, HUMAN 100 UNITS/ML, 10 ML VIAL (humuLIN R) SUBCUT PRN ×3 (06:03→18:15)
--- NOTE | 2020-02-27 06:12 | NUR ---
PAGED: BP 194/99, DOPMAINE TURNED OFF, DR. HOYT PAGED, PENDING RETURN CALL.
--- NOTE | 2020-02-27 06:13 | NUR ---
PAGED DR. HOYT FOR ORDERS DIALED: [phone] SPOKE TO: JORDANA
--- NOTE | 2020-02-27 06:20 | NUR ---
HYDRALAZINE: NEW ORDER RC'VD FROM DR. HOYT AND TRANSCRIBED, CHARGE AWARE.
[2020-02-27] MEDS ORDERED: hydrALAZINE HCL 20 MG/ML VIAL ONE (06:23)
[2020-02-27] MEDS: hydrALAZINE HCL 20 MG/ML VIAL IVP PRN (06:28)
--- NOTE | 2020-02-27 06:46 | NUR ---
CLOSING NOTE: ALL CARES ENDORSED TO NOC NURSE, REPORT GIVEN VIA SBAR FORMAT.
--- NOTE | 2020-02-27 07:30 | NUR ---
Opening note: Report received from night RN. Assuming care now.
[2020-02-27] MEDS: ASCORBIC ACID 500 MG TABLET PO SCH ×2 (08:44→20:01)
[2020-02-27] MEDS: methylPREDNISolone SOD SUCC 40 MG/ML VIAL IVP SCH ×2 (08:44→20:01)
[2020-02-27] MEDS: CEFEPIME 0.5 GM in D5W 50 ML IV SCH ×2 (08:45→20:01)
[2020-02-27] MEDS: LINEZOLID 300 ML IV SCH (08:45)
[2020-02-27] MEDS: CHOLECALCIFEROL (VITAMIN D3) 2,000 UNIT TABLET PO SCH (08:45)
[2020-02-27] MEDS: ENOXAPARIN SODIUM 100 MG/ML SYRINGE SUBCUT SCH ×2 (08:46→20:02)
--- NOTE | 2020-02-27 10:00 | NUR ---
Dr Causey here. Observed HR in 40s and wants Dopmine restarted and titrated to HR>59.
[2020-02-27 11:42] LABS: BASOPHILS # (AUTO) 0.1 K/uL (0.0-0.2); BASOPHILS % (AUTO) 0.7 % (0.0-2.0); EOSINOPHILS % (AUTO) 0.1 % (0.0-4.0); HEMATOCRIT 40.8 % (36-54); HEMOGLOBIN 13.8 g/dL (14.0-18.0); LYMPHOCYTES # (AUTO) 0.5 K/uL (1.0-5.5); LYMPHOCYTES % (AUTO) 4.7 % (20.5-51.5); MEAN CORPUSCULAR HEMOGLOBIN 31 pg (27-31); MEAN CORPUSCULAR HGB CONC 34 % (32-36); MEAN CORPUSCULAR VOLUME 92 fL (79.0-98.0); MONOCYTES # (AUTO) 0.3 K/uL (0.0-1.0); MONOCYTES % (AUTO) 2.3 % (1.7-9.3); NEUTROPHILS # (AUTO) 10.1 K/uL (1.8-7.7); NEUTROPHILS % (AUTO) 92.2 % (40.0-70.0); PLATELET COUNT (AUTO) 156 K/uL (130-430); RED BLOOD CELL COUNT(AUTO) 4.42 MIL/uL (4.2-6.2); RED CELL DISTRIBUTION WIDTH 12.9 % (9.0-15.0)
[2020-02-27 12:00] LABS: CALCIUM 9.3 mg/dL (8.4-11.0); CREATININE 0.64 mg/dL (0.55-1.30)
[2020-02-27 12:05] LABS: ALBUMIN 2.8 g/dL (3.4-4.8); TOTAL BILIRUBIN 0.6 mg/dL (0.0-1.0)
[2020-02-27] MEDS: FLUCONAZOLE 200 mg/ NS 100 ML IV SCH (12:09)
[2020-02-27] MEDS: ALBUTEROL MDI INHALATION 8 GM INH INH SCH ×2 (13:52→19:05)
[2020-02-27] MEDS: BALSAM PERU/CASTOR OIL 60 GM OINT...G. TP SCH (14:12)
--- NOTE | 2020-02-27 16:30 | NUR ---
Patient placed supine without incident.
--- NOTE | 2020-02-27 19:31 | NUR ---
OPENING NOTE RECEIVED SBAR REPORT FROM OFF COMING RN FOR CONTINUITY OF CARE.
[2020-02-27] MEDS: INSULIN GLARGINE 100 UNITS/ML 10 ML VIAL SUBCUT SCH ×2 (20:03)
--- NOTE | 2020-02-27 21:00 | NUR ---
RN ROUNDS: REPOSITIONED PATIENTS ARMS, TOLERATED WELL. BED IN LOWEST LOCKED POSITION WITH ALL SAFETY PRECAUTIONS IN PLACE. MONITORING AT THIS TIME.
--- NOTE | 2020-02-27 23:00 | NUR ---
NEURO: PATIENT OPENED EYES AND SQUEEZED LEFT AND RIGHT HAND WHEN ASKED. PATIENT NODDED HEAD WHEN ASKED IF HE CAN HEAR MY VOICE AND FOLLOW COMMANDS.
[2020-02-28] VITALS (31 sets, daily range): BP systolic 117–188
[2020-02-28] MEDS: ALBUTEROL MDI INHALATION 8 GM INH INH SCH ×4 (01:00→20:29)
[2020-02-28] MEDS: PROPOFOL DRIP 100 ML IV PRN ×5 (01:24→20:44)
--- NOTE | 2020-02-28 01:26 | NUR ---
PRONE: PATIENT PRONED WITHOUT INCIDENT
--- NOTE | 2020-02-28 01:59 | NUR ---
RN ROUNDS PILLOW PLACED UNDERNEATH LEFT HIP OF PATIENT TO RELIEVE PRESSURE. WILL REPOSITION PATIENT EVERY 2 HOURS. ROLLED BLANKETS PLACED UNDER BACK OF ANKLES TO RELIEVE PRESSURE OFF OF HEELS. WILL CONTINUE TO MONITOR.
--- NOTE | 2020-02-28 04:00 | NUR ---
RN ROUNDS: REPOSITIONED PATIENTS ARMS, TOLERATED WELL. BED IN LOWEST LOCKED POSITION WITH ALL SAFETY PRECAUTIONS IN PLACE. MONITORING AT THIS TIME.
[2020-02-28] MEDS: metroNIDAZOLE 250 mg/NS 50 ML IV SCH ×3 (05:02→22:13)
--- NOTE | 2020-02-28 06:30 | NUR ---
CLOSING NOTE: ALL CARES TO BE ENDORSED TO AM NURSE, PATIENT IN BED IN NO ACUTE DISTRESS AND OR DISCOMFORT. ALL SAFETY PRECAUTIONS IN PLACE.
[2020-02-28 06:56] LABS: ALBUMIN 2.3 g/dL (3.4-4.8); CALCIUM 8.5 mg/dL (8.4-11.0); CREATININE 0.51 mg/dL (0.55-1.30); POTASSIUM 3.8 mmol/L (3.5-5.1); TOTAL BILIRUBIN 0.5 mg/dL (0.0-1.0)
--- NOTE | 2020-02-28 07:30 | NUR ---
oPENING NOTE: Report received from night RN. Assuming care now.
[2020-02-28 07:47] LABS: HEMATOCRIT 34.7 % (36-54); HEMOGLOBIN 12.2 g/dL (14.0-18.0); MEAN CORPUSCULAR HEMOGLOBIN 33 pg (27-31); MEAN CORPUSCULAR HGB CONC 35 % (32-36); MEAN CORPUSCULAR VOLUME 93 fL (79.0-98.0); PLATELET COUNT (AUTO) 261 K/uL (130-430); RED BLOOD CELL COUNT(AUTO) 3.75 MIL/uL (4.2-6.2); RED CELL DISTRIBUTION WIDTH 13.3 % (9.0-15.0); WHITE BLOOD COUNT (AUTO) 11.9 K/uL (4.8-10.8)
[2020-02-28] MEDS: ASCORBIC ACID 500 MG TABLET PO SCH ×2 (09:39→20:14)
[2020-02-28] MEDS: CHOLECALCIFEROL (VITAMIN D3) 2,000 UNIT TABLET PO SCH (09:39)
[2020-02-28] MEDS: methylPREDNISolone SOD SUCC 40 MG/ML VIAL IVP SCH ×2 (09:39→20:14)
[2020-02-28] MEDS: ENOXAPARIN SODIUM 100 MG/ML SYRINGE SUBCUT SCH ×2 (09:40→20:14)
[2020-02-28] MEDS: BALSAM PERU/CASTOR OIL 60 GM OINT...G. TP SCH (09:43)
[2020-02-28] MEDS: CEFEPIME 0.5 GM in D5W 50 ML IV SCH ×2 (09:44→20:13)
[2020-02-28] MEDS ORDERED: THEOPHYLLINE ANHYDROUS 200 MG CAP.ER.24H PO ONE (11:00)
[2020-02-28] MEDS: FLUCONAZOLE 200 mg/ NS 100 ML IV SCH (11:37)
[2020-02-28] MEDS: INSULIN REGULAR, HUMAN 100 UNITS/ML, 10 ML VIAL (humuLIN R) SUBCUT PRN ×2 (12:17→17:09)
[2020-02-28 12:20] LABS: BAND % (MANUAL) 8 % (0-6); BASOPHILS % (MANUAL) 0 % (0-2); EOSINOPHILS % (MANUAL) 0 % (0-7); LYMPHOCYTES % (MANUAL) 1 % (20-46); MONOCYTES % (MANUAL) 7 % (0-11)
--- NOTE | 2020-02-28 15:30 | NUR ---
1 unit of convalescent plasma infused without incident.
--- NOTE | 2020-02-28 15:33 | NUR ---
Nutrition F/U RD reviewed pt's current EMR record including diet hx, MD notes, RN notes, pertinent labs/meds/procedures, care trends, and care activity Admitting Diagnosis: COVID-19, pneumonia, respiratory failure Medical History Comment: PMH: DM, HTN per physician's notes Pt also found w/ hyponatremia per physician notes 02/24 : notes: Chronic debility SARS-CoV-2 Ag (Rapid) Positive 02/04 Subjective Information: Nutrition Consult received for wound sacral/buttock areas 02/[address] bedside visit deferred d/t isolation precautions and PPE conservation efforts. RD spoke w/ pt's primary RN who reported that pt has been tolerating TF w/ maximum GRV of 50 ml today. He also reported that pt is in prone position x16 hrs/day (w/ TF infusing at 15 ml/hr while prone), and supine position x8 hours/day (w/ TF infusing at 25 ml/hr while supine). Pt has been receiving Vital HP TF formula since 02/21. RN reported that pt has been having a bit of diarrhea, but tested negative for C. diff. Pt may benefit from modification of TF formula to Vital AF 1.2 as well as Banatrol BID to improve TF tolerance and decrease diarrhea. Per EMR review, TF Intakes: 120 ml 02/27; GRV: 100 ml 02/27; abd is non-distended w/ active bowel sounds; last BM x2 02/27. Current Diet Order/Nutrition Support: Vital High Protein at 25 ml/hr (goal rate), Prosource BID, FWF per physician via OGT x3 days Pertinent Medications: lantus, SSI, VIT D3, VIT C, zinc sulfate, Lovenox, solu-medrol, propofol at 26.5 ml/hr (700 kcal/day) Pertinent Labs: Na 136 WNL (improved), BUN 29 H, WBC 11.9 H, BG 212 H (trending down), POC BG 202 H (trending down), HgA1c 9.4 H (02/05) Skin Integrity Comment: Adrian scale: 11; per Hand Etcher Helper note 02/25: 1. Anterior Nose Abrasion. Wound bed has 100% black scab. No odor, no drainage. Yaquelin-wound intact. 2. Sacral/Bilateral Buttocks area: Possible sDTI. Site has 85% dark discolored skin, 5% dark discolored tissue, 10% red tissue (a couple of scattered small areas). NEW Estimated Energy Expenditure (kcals/day) 2347 kcal/day (REE using PSU 2009 d/t critical illness/intubated) Estimated Protein Required (g/day) 98-150 gm/day (1.3-2 gm/kg IBW for acute state, respiratory failure) NEW Estimated Fluid Required (l/day) 2.3 L/day (1 ml/kcal/day for maintenance) Problem/Etiology/Signs/Symptoms Increased nutritional needs related to metabolic demands as evidenced by estimated nutritional requirements for acute state. *ongoing Complicated GI function related to unknown etiology as evidenced by loose stool/diarrhea per RN report. *new Inadequate nutritional intakes related to metabolic demands as evidenced by estimated nutritional requirements for acute state, respiratory failure. Expected Outcomes/Goals - Monitor EN tolerance and intakes w/ goal of pt meeting at least 75% of estimated nutritional needs, labs trending WNL, normal GI function, and skin integrity/wt maintenance Dietitian Recommendations * Recommend Vital AF 1.2 at 15 ml/hr (x16 hours while prone) or 95 ml/hr (x8 hours while supine), Free Water Flush: per physician via NGT Provides (w/ propofol infusing at 26.5 ml/hr (700 kcal/day)): 1900 kcal/day, 75 gm protein/day, and 811 ml free water/day Meets: 81% of estimated caloric needs and 77% of lower end of estimated protein needs Follow Up High Risk: F/U in 2-3 days Addendum: 02/28/20 at [address] CORRECTION: Dietitian Recommendations * Recommend Vital AF 1.2 at 15 ml/hr (x16 hours/day while prone) or 95 ml/hr (x8 hours/day while supine), Banatrol BID, Free Water Flush: per physician via NGT Provides (w/ propofol infusing at 26.5 ml/hr (700 kcal/day)): 1900 kcal/day, 75 gm protein/day, and 811 ml free water/day Meets: 81% of estimated caloric needs and 77% of lower end of estimated protein needs Follow Up High Risk: F/U in 2-3 days
--- NOTE | 2020-02-28 15:43 | NUR ---
Dietitian Recommendations * Recommend Vital AF 1.2 at 15 ml/hr (x16 hours while prone) or 95 ml/hr (x8 hours while supine), Free Water Flush: per physician via NGT Provides (w/ propofol infusing at 26.5 ml/hr (700 kcal/day)): 1900 kcal/day, 75 gm protein/day, and 811 ml free water/day Meets: 81% of estimated caloric needs and 77% of lower end of estimated protein needs LP, RD Please refer to Nutrition F/U for details.
--- NOTE | 2020-02-28 15:50 | NUR ---
Dr Medrano at bedside. No new orders.
--- NOTE | 2020-02-28 16:55 | NUR ---
Patient placed supine without incident.
--- NOTE | 2020-02-28 18:26 | NUR ---
Facetime currently underway with family.
--- NOTE | 2020-02-28 19:35 | NUR ---
OPENING NOTE RECEIVED SBAR REPORT FROM OFF COMING RN FOR CONTINUITY OF CARE.
[2020-02-28] MEDS: THEOPHYLLINE ANHYDROUS 200 MG CAP.ER.24H PO SCH (20:14)
[2020-02-28] MEDS: INSULIN GLARGINE 100 UNITS/ML 10 ML VIAL SUBCUT SCH (20:15)
[2020-02-28] MEDS: hydrALAZINE HCL 20 MG/ML VIAL IVP PRN (20:42)
[2020-02-28] MEDS: MORPHINE I.V. DRIP 100 ML IV PRN (21:58)
--- NOTE | 2020-02-28 22:30 | NUR ---
ORAL SECRETIONS: INCREASE IN ORAL SECRETIONS NOTED, MOUTH AND ETT SUCTIONED. RT AWARE AND AT BEDSIDE, INFLATION OF ETT CUFF CHECKED TO PREVENT ASPIRATION RISK.
[2020-02-29] VITALS (28 sets, daily range): BP systolic 97–190
[2020-02-29] MEDS: PROPOFOL DRIP 100 ML IV PRN ×6 (00:06→20:22)
[2020-02-29] MEDS: METOPROLOL TARTRATE 5 MG/5 ML VIAL IVP PRN (00:20)
[2020-02-29] MEDS: INSULIN REGULAR, HUMAN 100 UNITS/ML, 10 ML VIAL (humuLIN R) SUBCUT PRN ×2 (00:22→17:44)
[2020-02-29] MEDS: ALBUTEROL MDI INHALATION 8 GM INH INH SCH ×4 (01:40→19:30)
--- NOTE | 2020-02-29 02:05 | NUR ---
PRONE: PATIENT PRONED WITHOUT INCIDENT. PLACED ONTO NEW BED. TOLERATED WELL.
--- NOTE | 2020-02-29 03:23 | NUR ---
RN ROUNDS: PATIENT REPOSITIONED, TOLERATED WELL. BED IN LOWEST LOCKED POSITION WITH ALL SAFETY PRECAUTIONS IN PLACE. MONITORING AT THIS TIME.
[2020-02-29] MEDS: metroNIDAZOLE 250 mg/NS 50 ML IV SCH ×3 (05:22→21:52)
[2020-02-29 06:39] LABS: BASOPHILS % (AUTO) 0.4 % (0.0-2.0); EOSINOPHILS % (AUTO) 0.2 % (0.0-4.0); HEMATOCRIT 34.9 % (36-54); HEMOGLOBIN 11.6 g/dL (14.0-18.0); LYMPHOCYTES # (AUTO) 0.4 K/uL (1.0-5.5); LYMPHOCYTES % (AUTO) 3.2 % (20.5-51.5); MEAN CORPUSCULAR HEMOGLOBIN 31 pg (27-31); MEAN CORPUSCULAR HGB CONC 33 % (32-36); MEAN CORPUSCULAR VOLUME 93 fL (79.0-98.0); MONOCYTES # (AUTO) 0.2 K/uL (0.0-1.0); MONOCYTES % (AUTO) 1.7 % (1.7-9.3); NEUTROPHILS # (AUTO) 10.4 K/uL (1.8-7.7); PLATELET COUNT (AUTO) 162 K/uL (130-430); RED BLOOD CELL COUNT(AUTO) 3.75 MIL/uL (4.2-6.2)
--- NOTE | 2020-02-29 06:44 | NUR ---
CLOSING NOTE: ALL CARES TO BE ENDORSED TO AM NURSE, PATIENT IN BED IN NO ACUTE DISTRESS AND OR DISCOMFORT. ALL SAFETY PRECAUTIONS IN PLACE.
--- NOTE | 2020-02-29 07:30 | NUR ---
RT NOTES FIO2 TO 0.80 PER TITRATION ORDER. WILL MONITOR PT.
--- NOTE | 2020-02-29 07:30 | NUR ---
Opening Note Received plan of care via sbar from endorsing RN.
[2020-02-29 07:42] LABS: NEUTROPHILS % (AUTO) 94.5 % (40.0-70.0)
--- NOTE | 2020-02-29 08:00 | NUR ---
Dr. Causey at bedside. Provided patient update. No new order.
--- NOTE | 2020-02-29 08:25 | NUR ---
Dr. Escalante at bedside. Provided patient update. No new orders.
--- NOTE | 2020-02-29 08:40 | NUR ---
Spoke to Dr. Parra and provided patient update. No new orders.
[2020-02-29] MEDS: ASCORBIC ACID 500 MG TABLET PO SCH ×2 (09:22→21:47)
[2020-02-29] MEDS: CEFEPIME 0.5 GM in D5W 50 ML IV SCH ×2 (09:22→21:47)
[2020-02-29] MEDS: THEOPHYLLINE ANHYDROUS 200 MG CAP.ER.24H PO SCH ×2 (09:22→21:53)
[2020-02-29] MEDS: BALSAM PERU/CASTOR OIL 60 GM OINT...G. TP SCH (09:22)
[2020-02-29] MEDS: CHOLECALCIFEROL (VITAMIN D3) 2,000 UNIT TABLET PO SCH (09:22)
[2020-02-29] MEDS: ENOXAPARIN SODIUM 100 MG/ML SYRINGE SUBCUT SCH ×2 (09:25→21:49)
[2020-02-29] MEDS: methylPREDNISolone SOD SUCC 40 MG/ML VIAL IVP SCH ×2 (09:42→21:47)
[2020-02-29] MEDS: FLUCONAZOLE 200 mg/ NS 100 ML IV SCH (10:36)
--- NOTE | 2020-02-29 19:20 | NUR ---
Opening note Received report and assumed care. Patient on isolation for Covid 19. Vent to ETT in place with settings on pressure control FIO2 80%. VSS and sedation being infused. KALPANA picc patent. Will continue to monitor.
[2020-02-29] MEDS: MORPHINE I.V. DRIP 100 ML IV PRN (20:23)
[2020-02-29] MEDS: INSULIN GLARGINE 100 UNITS/ML 10 ML VIAL SUBCUT SCH (21:00)
[2020-03-01] VITALS (31 sets, daily range): BP systolic 106–207
--- NOTE | 2020-03-01 02:30 | NUR ---
Proned at this time and tolerating well. O2 sats 93%.
[2020-03-01] MEDS: ALBUTEROL MDI INHALATION 8 GM INH INH SCH ×4 (03:15→19:45)
[2020-03-01] MEDS: DILTIAZEM HCL 25 MG/5 ML VIAL IVP PRN (05:26)
[2020-03-01] MEDS: metroNIDAZOLE 250 mg/NS 50 ML IV SCH ×3 (06:20→22:26)
[2020-03-01 07:19] LABS: HEMATOCRIT 35.1 % (36-54); HEMOGLOBIN 11.5 g/dL (14.0-18.0); LYMPHOCYTES # (AUTO) 0.6 K/uL (1.0-5.5); LYMPHOCYTES % (AUTO) 3.8 % (20.5-51.5); MEAN CORPUSCULAR HEMOGLOBIN 31 pg (27-31); MEAN CORPUSCULAR HGB CONC 33 % (32-36); MEAN CORPUSCULAR VOLUME 94 fL (79.0-98.0); MONOCYTES # (AUTO) 0.2 K/uL (0.0-1.0); MONOCYTES % (AUTO) 1.6 % (1.7-9.3); NEUTROPHILS # (AUTO) 13.9 K/uL (1.8-7.7); PLATELET COUNT (AUTO) 185 K/uL (130-430); RED BLOOD CELL COUNT(AUTO) 3.73 MIL/uL (4.2-6.2); RED CELL DISTRIBUTION WIDTH 13.5 % (9.0-15.0); WHITE BLOOD COUNT (AUTO) 14.9 K/uL (4.8-10.8)
--- NOTE | 2020-03-01 07:35 | NUR ---
Opening Note Received bedside report from endorsing RN for continuation of care. Received patient intubated, sedated, and resting prone in bed. No signs or symptoms of acute distress noted. Bed locked in lowest position and bed alarm on. Fall and safety precautions in place.
--- NOTE | 2020-03-01 08:17 | NUR ---
Dr. Escalante in to see patient. New orders received.
[2020-03-01] MEDS: ASCORBIC ACID 500 MG TABLET PO SCH ×2 (08:23→22:26)
[2020-03-01] MEDS: CHOLECALCIFEROL (VITAMIN D3) 2,000 UNIT TABLET PO SCH (08:23)
[2020-03-01] MEDS: methylPREDNISolone SOD SUCC 40 MG/ML VIAL IVP SCH ×2 (08:23→22:26)
[2020-03-01] MEDS: THEOPHYLLINE ANHYDROUS 200 MG CAP.ER.24H PO SCH (08:24)
[2020-03-01] MEDS: ENOXAPARIN SODIUM 100 MG/ML SYRINGE SUBCUT SCH (08:25)
[2020-03-01] MEDS: BALSAM PERU/CASTOR OIL 60 GM OINT...G. TP SCH (08:25)
--- NOTE | 2020-03-01 08:29 | NUR ---
HIGH ALERT NOTE: Metoprolol IV Spoke with Dr. Escalante at bedside in ICU. Identified within the medical roster to verify physician authenticity.
[2020-03-01] MEDS ORDERED: METOPROLOL TARTRATE 5 MG/5 ML VIAL IVP ONE (08:30)
[2020-03-01 08:35] LABS: EOSINOPHILS # (AUTO) 0.2 K/uL (0.0-0.4); EOSINOPHILS % (AUTO) 1.4 % (0.0-4.0)
[2020-03-01 08:36] LABS: NEUTROPHILS % (AUTO) 93.2 % (40.0-70.0)
[2020-03-01] MEDS: CEFEPIME 0.5 GM in D5W 50 ML IV SCH ×2 (08:41→22:25)
[2020-03-01 09:48] LABS: ALBUMIN 2.5 g/dL (3.4-4.8); CALCIUM 8.5 mg/dL (8.4-11.0); CREATININE 0.68 mg/dL (0.55-1.30); POTASSIUM 4.2 mmol/L (3.5-5.1); TOTAL BILIRUBIN 0.4 mg/dL (0.0-1.0)
--- NOTE | 2020-03-01 09:51 | NUR ---
HIGH ALERT: SECOND NURSE CHECK DIPRIVAN INCREASED TO 40 MCG/KG/MIN. Addendum: 03/01/20 at 0952 by Rachelle Eldridge RN ASSESSED AT 0900
[2020-03-01] MEDS: PROPOFOL DRIP 100 ML IV PRN ×2 (11:06→15:40)
[2020-03-01] MEDS: FLUCONAZOLE 200 mg/ NS 100 ML IV SCH (11:36)
--- NOTE | 2020-03-01 11:45 | NUR ---
Dr. Causey in to see patient. No new orders.
[2020-03-01] MEDS: MORPHINE I.V. DRIP 100 ML IV PRN (11:46)
[2020-03-01] MEDS: INSULIN REGULAR, HUMAN 100 UNITS/ML, 10 ML VIAL (humuLIN R) SUBCUT PRN ×3 (11:51→17:05)
[2020-03-01] MEDS: hydrALAZINE HCL 20 MG/ML VIAL IVP PRN (16:21)
--- NOTE | 2020-03-01 16:30 | NUR ---
Dr. Medrano in to see patient. No new orders.
--- NOTE | 2020-03-01 17:00 | NUR ---
Repositioned to Supine/Bloody Secretions Patient repositioned to supine position, noted large amount of nasal and oral bloody secretions. Pressure and gauze placed to site, no active bleeding noted. Oral care done. Patient cleaned, turned, repositioned, and suctioned.
--- NOTE | 2020-03-01 17:59 | NUR ---
Called Dr. Grimm with a consult, spoke with Suellen from the exchange
[2020-03-01 19:23] LABS: HEMATOCRIT 32.4 % (36-54); HEMOGLOBIN 10.5 g/dL (14.0-18.0); MEAN CORPUSCULAR HEMOGLOBIN 31 pg (27-31); MEAN CORPUSCULAR HGB CONC 33 % (32-36); MEAN CORPUSCULAR VOLUME 95 fL (79.0-98.0); PLATELET COUNT (AUTO) 189 K/uL (130-430); RED CELL DISTRIBUTION WIDTH 13.6 % (9.0-15.0); WHITE BLOOD COUNT (AUTO) 14.2 K/uL (4.8-10.8)
--- NOTE | 2020-03-01 19:30 | NUR ---
Closing Note Endorsed bedside report to oncoming RN using SBAR approach for continuation of care.
--- NOTE | 2020-03-01 19:40 | NUR ---
Opening note Received patient and assumed care. Patient in isolation for covid19. Vent to ETT in place and tolerating settings on Pressure support. Midline KALPANA in place and patent. Sedation infusing and effective as patient responds to light stimuli. Patient noted to Have copious bloody secretions; MD aware as Hermatology consultation with Dr Grimm was ordered. will continue to monitor patient as per unit protocol.
[2020-03-01] MEDS: INSULIN GLARGINE 100 UNITS/ML 10 ML VIAL SUBCUT SCH (21:00)
--- NOTE | 2020-03-01 21:00 | NUR ---
Call received from Dr Grimm; information regarding reason for consultation was reported to MD. Orders received.
[2020-03-01 22:57] LABS: BAND % (MANUAL) 8 % (0-6); BASOPHILS % (MANUAL) 0 % (0-2); EOSINOPHILS % (MANUAL) 0 % (0-7); LYMPHOCYTES % (MANUAL) 1 % (20-46); MONOCYTES % (MANUAL) 3 % (0-11)
[2020-03-02] VITALS (31 sets, daily range): BP systolic 71–142
[2020-03-02] MEDS: INSULIN REGULAR, HUMAN 100 UNITS/ML, 10 ML VIAL (humuLIN R) SUBCUT PRN ×4 (00:05→17:39)
[2020-03-02] MEDS: ALBUTEROL MDI INHALATION 8 GM INH INH SCH ×4 (04:00→20:15)
--- NOTE | 2020-03-02 05:40 | NUR ---
Morning care provided. patient continues to bleed from mouth and nose. Waiting for morning consultation with Dr Grimm.Patient requires suctioning frequently.
[2020-03-02] MEDS: metroNIDAZOLE 250 mg/NS 50 ML IV SCH ×3 (06:30→22:34)
[2020-03-02] MEDS: MORPHINE I.V. DRIP 100 ML IV PRN ×2 (06:39→06:41)
[2020-03-02 06:54] LABS: BASOPHILS # (AUTO) 0.1 K/uL (0.0-0.2); EOSINOPHILS # (AUTO) 0.1 K/uL (0.0-0.4); EOSINOPHILS % (AUTO) 0.7 % (0.0-4.0); HEMATOCRIT 30.8 % (36-54); HEMOGLOBIN 10.2 g/dL (14.0-18.0); LYMPHOCYTES # (AUTO) 1.1 K/uL (1.0-5.5); LYMPHOCYTES % (AUTO) 7.1 % (20.5-51.5); MEAN CORPUSCULAR HEMOGLOBIN 31 pg (27-31); MEAN CORPUSCULAR HGB CONC 33 % (32-36); MEAN CORPUSCULAR VOLUME 94 fL (79.0-98.0); MONOCYTES # (AUTO) 0.3 K/uL (0.0-1.0); MONOCYTES % (AUTO) 2.1 % (1.7-9.3); NEUTROPHILS # (AUTO) 13.3 K/uL (1.8-7.7); NEUTROPHILS % (AUTO) 89.1 % (40.0-70.0); PLATELET COUNT (AUTO) 209 K/uL (130-430); RED BLOOD CELL COUNT(AUTO) 3.26 MIL/uL (4.2-6.2); RED CELL DISTRIBUTION WIDTH 13.5 % (9.0-15.0); WHITE BLOOD COUNT (AUTO) 14.9 K/uL (4.8-10.8)
--- NOTE | 2020-03-02 07:05 | NUR ---
TITRATED FIO2 DOWN TO 70%. SPO2 98%, HR 102.
--- NOTE | 2020-03-02 07:20 | NUR ---
Opening Notes Pt received from night RN using SBAR
[2020-03-02] MEDS: CEFEPIME 0.5 GM in D5W 50 ML IV SCH ×2 (08:46→21:32)
[2020-03-02] MEDS: CHOLECALCIFEROL (VITAMIN D3) 2,000 UNIT TABLET PO SCH (08:46)
[2020-03-02] MEDS: ASCORBIC ACID 500 MG TABLET PO SCH ×2 (08:46→21:33)
[2020-03-02] MEDS: methylPREDNISolone SOD SUCC 40 MG/ML VIAL IVP SCH ×2 (08:46→20:39)
[2020-03-02] MEDS: BALSAM PERU/CASTOR OIL 60 GM OINT...G. TP SCH (08:49)
[2020-03-02] MEDS: PROPOFOL DRIP 100 ML IV PRN ×4 (08:49→22:32)
[2020-03-02] MEDS ORDERED: ENOXAPARIN SODIUM 40 MG/0.4 ML SYRINGE SUBCUT SCH (09:00)
[2020-03-02 09:12] LABS: ALBUMIN 2.3 g/dL (3.4-4.8); CALCIUM 8.6 mg/dL (8.4-11.0); CREATININE 0.57 mg/dL (0.55-1.30); POTASSIUM 4.3 mmol/L (3.5-5.1); TOTAL BILIRUBIN 0.3 mg/dL (0.0-1.0)
[2020-03-02] MEDS: FLUCONAZOLE 200 mg/ NS 100 ML IV SCH (10:38)
--- NOTE | 2020-03-02 11:16 | NUR ---
Family Spoke to pt's Yakelin, provided updates.
[2020-03-02] MEDS: NOREPINEPHRINE BITARTRATE 4 MG in NS 246 ML IV PRN ×3 (13:02→22:30)
--- NOTE | 2020-03-02 13:28 | NUR ---
MD Dr. Grimm informed of results from labs ordered. New orders received.
[2020-03-02] MEDS ORDERED: LR 500 ML IV ONE (14:30)
--- NOTE | 2020-03-02 14:58 | NUR ---
Pharmacy called requesting if Marcela wants Diprivan drip and Morphine drip reordered, Marcela at nurse's station, approved order.
--- NOTE | 2020-03-02 15:17 | NUR ---
Nutrition F/U RD reviewed pt's current EMR record including diet hx, MD notes, RN notes, pertinent labs/meds/procedures, care trends, and care activity Admitting Diagnosis: COVID-19, pneumonia, respiratory failure Medical History Comment: PMH: DM, HTN per physician's notes Pt also found w/ hyponatremia per physician notes 02/24 : notes: Chronic debility SARS-CoV-2 Ag (Rapid) Positive 02/04 Subjective Information: RD s/w pt's RN who reports pt is no longer in prone position d/t active oral bleeding. RN reports Vital AF 1.2 is currently enfusing at 50ml/hr continuously and pt is tolerating w/ minimal residuals. Abd is noted as soft per EMR. W/ Propofol enfusing at 20.7 ml/hr (provides 543kcal/day) and Vital AF 1.2 at 50ml/hr, this will provide 1983kcal, 90g of protein, and 973ml of free H20 daily, which meets 84%kcal and 92% of lower end of protein needs. Current Diet Order/Nutrition Support: Vital AF 1.2 at 15 ml/hr (x16 hours/day while prone) or 95 ml/hr (x8 hours/day while supine), Banatrol BID, Free Water Flush: per physician Pertinent Medications: lantus, SSI, VIT D3, VIT C, zinc sulfate, Lovenox, solu-medrol, propofol at 20.57 ml/hr (543 kcal/day) Pertinent Labs: Na 138 WNL, BUN 40 H, WBC 14.9 H, BG 201 H (trending down), POC BG 218 H, 289 H, HgA1c 9.4 H (02/05) Skin Integrity Comment: Adrian scale: 11; per Culinary Artist note 02/25: 1. Anterior Nose Abrasion. Wound bed has 100% black scab. No odor, no drainage. Yaquelin-wound intact. 2. Sacral/Bilateral Buttocks area: Possible sDTI. Site has 85% dark discolored skin, 5% dark discolored tissue, 10% red tissue (a couple of scattered small areas). NEW Estimated Energy Expenditure (kcals/day) 2347 kcal/day (REE using PSU 2009 d/t critical illness/intubated) Estimated Protein Required (g/day) 98-150 gm/day (1.3-2 gm/kg IBW for acute state, respiratory failure) NEW Estimated Fluid Required (l/day) 2.3 L/day (1 ml/kcal/day for maintenance) Problem/Etiology/Signs/Symptoms Increased nutritional needs related to metabolic demands as evidenced by estimated nutritional requirements for acute state. *ongoing Complicated GI function related to unknown etiology as evidenced by loose stool/diarrhea per RN report. *new Inadequate nutritional intakes related to metabolic demands as evidenced by estimated nutritional requirements for acute state, respiratory failure. (*improved) Expected Outcomes/Goals - Monitor EN tolerance and intakes w/ goal of pt meeting at least 75% of estimated nutritional needs, labs trending WNL, normal GI function, and skin integrity/wt maintenance Dietitian Recommendations * Continue Vital AF 1.2 at 50ml/hr as tolerated Provides (w/ propofol infusing at 20.57 ml/hr (543 kcal/day)): 1982 kcal/day, 90 gm protein/day, and 973 ml free water/day Meets: 84% of estimated caloric needs and 92% of lower end of estimated protein needs Follow Up High Risk: F/U in 2-3 days Addendum: 03/02/20 at [address] CORRECTION: Dietitian Recommendations * Continue Vital AF 1.2 at 50ml/hr and Banatrol BID Provides (w/ propofol infusing at 20.57 ml/hr (543 kcal/day)): 1982 kcal/day, 90 gm protein/day, and 973 ml free water/day Meets: 84% of estimated caloric needs and 92% of lower end of estimated protein needs Follow Up High Risk: F/U in 2-3 days
--- NOTE | 2020-03-02 15:38 | NUR ---
Dietitian Recommendations * Continue Vital AF 1.2 at 50ml/hr as tolerated Provides (w/ propofol infusing at 20.57 ml/hr (543 kcal/day)): 1983 kcal/day, 90 gm protein/day, and 973 ml free water/day Meets: 84% of estimated caloric needs and 92% of lower end of estimated protein needs Please see Nutrition F/U for further details. GET [facility]CADO Addendum: 03/02/20 at [address] Dietitian Recommendations * Continue Vital AF 1.2 at 50ml/hr and Banatrol BID Provides (w/ propofol infusing at 20.57 ml/hr (543 kcal/day)): 1983 kcal/day, 90 gm protein/day, and 973 ml free water/day Meets: 84% of estimated caloric needs and 92% of lower end of estimated protein needs Please see Nutrition F/U for further details. GET MERCADO
[2020-03-02] MEDS ORDERED: NALOXONE HCL 0.4 MG/ML AMP (NARCAN) IVP PRN (17:00)
[2020-03-02] MEDS ORDERED: MORPHINE I.V. DRIP 100 ML IV PRN (17:00)
--- NOTE | 2020-03-02 18:08 | NUR ---
Wound Care Unable to provide wound care to pt due to being unstable. Pt is bleeding from mouth and nose, and when turning causes bleeding to increase.
--- NOTE | 2020-03-02 19:40 | NUR ---
Closing Notes Pt endorsed to Abigail MENJIVAR using SBAR.
--- NOTE | 2020-03-02 19:47 | NUR ---
iPAD Provided pt with iPAD to communicate with and daughter.
--- NOTE | 2020-03-02 20:00 | NUR ---
ASSESSMENT Pt non responsive to voice or touch. O2 saturation greater than 92% on vent. Pt has blood tinge oral secretions. Tee in use with small amount of antonia color urine. Mid line PICC present, no redness or selling noted @ site. Dressing intact. Family here, watching pt from outside pt room.
[2020-03-02] MEDS ORDERED: SENNA 8.8 MG/5 ML UDC GT SCH (21:00)
[2020-03-02] MEDS ORDERED: INSULIN GLARGINE 100 UNITS/ML 10 ML VIAL SUBCUT SCH (21:00)
[2020-03-02] MEDS ORDERED: DOCUSATE SODIUM 100 MG/10 ML UDC PO SCH (21:00)
--- NOTE | 2020-03-02 21:00 | NUR ---
INSULIN Lantus insulin held, pt not tolerating tube feeding. Tube feeding off.
[2020-03-02] MEDS ORDERED: NOREPINEPHRINE 4 MG/4 ML VIAL IV ONE ×2 (21:12→22:25)
[2020-03-02] MEDS: DILTIAZEM HCL 25 MG/5 ML VIAL IVP PRN (21:34)
--- NOTE | 2020-03-02 21:34 | NUR ---
UNCONTROLLED A-FIB Heart rate greater than 120. Cardizem given IV per MD order.
[2020-03-03] MEDS ORDERED: EPINEPHrine JECT 0.1 MG/ML SYR ONE (00:03)
--- NOTE | 2020-03-03 00:03 | NUR ---
CODE BLUE Crash cart out of Epinephrine 3mg IV. 3mg of Epinephrine taken out of Pyxis for pt.
--- NOTE | 2020-03-03 00:30 | NUR ---
NOTIFIED OF PATIENT EXPIRATION DR. CEDENO/ DR. BOOTHE AMPHIBIOUS OPERATIONS OFFICER [phone] SPOKE WITH DIEGO RM [phone] SPOKE WITH JORDANA HOYT [phone] SPOKE WITH JORDANA SPENCE [phone] SPOKE WITH JORDANA
--- NOTE | 2020-03-03 00:32 | NUR ---
RECORD OF Calls made to [facility] [employer] and to [employer] Super[employer] both declined.
--- NOTE | 2020-03-03 00:57 | NUR ---
RT NOTES 03/02/20 1157- STARTED TO CODE ICU 8. KEPT PT ON VENT ON CURRENT SETTINGS PC30. 03/03/20 0016- DR RAMÍREZ PRONOUNCED PT .
--- NOTE | 2020-03-03 04:09 | NUR ---
MORTUARY Mortuary here to pick-up the body.
[2020-03-03] MEDS ORDERED: ENOXAPARIN SODIUM 40 MG/0.4 ML SYRINGE SUBCUT SCH (09:00)
== END 2020-03-03 00:17 | disposition expired | DRG 870 ==
LOC: SED 12:48 → STU 15:22 → SIC 02-06 08:46
PROVIDERS: ADMIT Internal Medicine; ATTEND Internal Medicine
PROC: 5A0955A Assistance with Respiratory Ventilation, Greater than 96 Consecutive Hours, High Flow/Velocity Cannula (ICD-10-PCS; 2020-02-05)
PROC: XW033E5 Introduction of Remdesivir Anti-infective into Peripheral Vein, Percutaneous Approach, New Technology Group 5 (ICD-10-PCS; 2020-02-06)
PROC: XW13325 Transfusion of Convalescent Plasma (Nonautologous) into Peripheral Vein, Percutaneous Approach, New Technology Group 5 (ICD-10-PCS; 2020-02-08)
PROC: 05HY33Z Insertion of Infusion Device into Upper Vein, Percutaneous Approach (ICD-10-PCS; 2020-02-12)
PROC: B54MZZA Ultrasonography of Right Upper Extremity Veins, Guidance (ICD-10-PCS; 2020-02-12)
PROC: 5A09357 Assistance with Respiratory Ventilation, Less than 24 Consecutive Hours, Continuous Positive Airway Pressure (ICD-10-PCS; 2020-02-15)
PROC: 5A0935A Assistance with Respiratory Ventilation, Less than 24 Consecutive Hours, High Flow/Velocity Cannula (ICD-10-PCS; 2020-02-15)
PROC: 5A09557 Assistance with Respiratory Ventilation, Greater than 96 Consecutive Hours, Continuous Positive Airway Pressure (ICD-10-PCS; 2020-02-15)
PROC: 5A1955Z Respiratory Ventilation, Greater than 96 Consecutive Hours (ICD-10-PCS; principal; 2020-02-22)
PROC: 0BH17EZ Insertion of Endotracheal Airway into Trachea, Via Natural or Artificial Opening (ICD-10-PCS; 2020-02-22)
PROC: 0BH17EZ Insertion of Endotracheal Airway into Trachea, Via Natural or Artificial Opening (ICD-10-PCS; 2020-02-24)
DX: A41.89 Other specified sepsis (principal); U07.1 COVID-19; J12.89 Other viral pneumonia; J96.01 Acute respiratory failure with hypoxia; R65.21 Severe sepsis with septic shock; E87.1 Hypo-osmolality and hyponatremia; I48.92 Unspecified atrial flutter; L89.159 Pressure ulcer of sacral region, unspecified stage; D72.810 Lymphocytopenia; E11.9 Type 2 diabetes mellitus without complications; E66.9 Obesity, unspecified; I10 Essential (primary) hypertension; Z86.2 Personal history of diseases of the blood and blood-forming organs and certain disorders involving the immune mechanism; Z68.31 Body mass index [BMI] 31.0-31.9, adult; Z86.74 Personal history of sudden cardiac arrest; Z79.01 Long term (current) use of anticoagulants
CPT/HCPCS: 36415; 36600; 71045; 80048; 80053; 80076; 81000-TC; 82550-TC; 82728; 82803-TC; 82962; 83036; 83605; 83615-TC; 83735-TC; 83880; 84100-TC; 84443-TC; 84478-TC; 84484; 85007; 85025; 85027; 85379; 85384-TC; 85610-TC; 85730-TC; 86140; 86886; 86900; 86901; 87040-TC; 87070-TC; 87081; 87086; 87205-TC; 87230-TC; 93005; 93306; 94002; 94003; 94010; 94640; 94660; 96374; 96375; 99291; A6209; C1751; G0378; J0171; J0282; J0360; J0456; J0461; J0610; J0692; J0696; J1030; J1100; J1265; J1450; J1650; J1815; J2020; J2060; J2270; J2543; J2704; J3262; J3490; J7030; J7040; J7050; J7060; J7120; J7131; P9017; P9046